=== PATIENT | male | born 1970 | race Caucasian/White ===

== ENCOUNTER 2018-03-18 14:16 | Inpatient (IN) | payer MEDICARE, OTHER ==
[2018-03-18] MEDS ORDERED: ATORVASTATIN 80 MG TAB PO STA (14:25)
[2018-03-18] MEDS ORDERED: CLOPIDOGREL 75 MG TAB PO STA ×3 (14:25→14:34)
[2018-03-18] MEDS ORDERED: HEPARIN SODIUM,PORCINE 5,000 UNIT/ML 1 ML VIAL IV STA (14:31)
[2018-03-18] MEDS ORDERED: SODIUM CHLORIDE 0.9% 500 ML IV ONE (14:32)
[2018-03-18] MEDS ORDERED: ONDANSETRON 4 MG/2 ML VIAL IVP STA (14:34)
[2018-03-18] MEDS: SODIUM CHLORIDE 0.9% 1,000 ML IV SCH ×2 (14:34→16:26)
[2018-03-18] MEDS ORDERED: NITROGLYCERIN SL TABS 0.4 MG TAB SUBLINGUAL PRN ×2 (14:34→15:54)
--- NOTE | 2018-03-18 14:34 | ED ---
Chest Pain HPI - General Chief Complaint: Chest Pain Stated Complaint: chest pain Time Seen by Provider: 03/18/18 14:18 Source: patient Mode of arrival: EMS Limitations: no limitations - History of Present Illness Initial Comments: 47 years old male had a chest pain off and on for us couple days he said he had a history of mild heart attack in the past. He denies any stent placement. He does have a history of hypertension today chest pain started towards ago pain that he got to nitro and aspirin by the embolus staff on arrival to the ER his chest pain is 2/10. And he is not short winded now but he was short of breath earlier and he said it does hurt to take a deep breath he denies any fever or chills - Related Data Home Medications Medication Instructions Recorded Confirmed Naproxen Sodium [Aleve] 220 mg PO BID 03/18/18 03/18/18 Allergies Allergy/AdvReac Type Severity Reaction Status Date / Time No Known Allergies Allergy Verified 03/18/18 14:38 Review of Systems ROS Statement: Those systems with pertinent positive or pertinent negative responses have been documented in the HPI. ROS Other: All systems not noted in ROS Statement are negative. EKG Findings - EKG Comments: EKG Findings:: EKG is a normal sinus ventricular rate 71 SC interval is 142 QRS duration is 96 QT/QTc is 410/445 review of this EKG reveals slight A STEMI into 3 and aVF and reciprocal changes and now we've and V2 V3, likely Dr. Monsivais happened to be in the hospital he came down to see the patient as well as EKG Past Medical History Past Medical History: GERD/Reflux, Hyperlipidemia, Hypertension, Myocardial Infarction ([place]) History of Any Multi-Drug Resistant Organisms: None Reported Past Surgical History: Back Surgery, Orthopedic Surgery Past Anesthesia/Blood Transfusion Reactions: No Reported Reaction Past Psychological History: No Psychological Hx Reported Smoking Status: Current every day smoker Past Alcohol Use History: None Reported Past Drug Use History: None Reported General Exam - General Exam Comments Initial Comments: General: The patient is awake and alert, in no distress, and does not appear acutely ill. Very anxious Skin: Skin is warm and dry and no rashes or lesions are noted. Eye: Pupils are equal, round and reactive to light, extra-ocular movements are intact; there is normal conjunctiva bilaterally. Ears, nose, mouth and throat: There are moist mucous membranes and no oral lesions. Neck: The neck is supple, there is no tenderness or JVD. Cardiovascular: There is a regular rate and rhythm. No murmur, rub or gallop is appreciated. Respiratory: To auscultation bilateral, no wheezing no rhonchi no distress respiratory randall noticed Gastrointestinal: Soft, non-distended, non-tender abdomen without masses or organomegaly noted. There is no rebound or guarding present. Bowel sounds are unremarkable. Back: There is no tenderness to palpation in the midline. There is no obvious deformity. Musculoskeletal: Normal ROM, no tenderness, There is no pedal edema. There is no calf tenderness or swelling. No cords were appreciated. Neurological: CN II-XII intact, Cranial nerves III through XII are intact. There are no obvious motor or sensory deficits. Coordination appears grossly intact. Speech is normal. Psychiatric: Cooperative, appropriate mood & affect, normal judgment. Limitations: no limitations Course Vital Signs 03/18/18 03/18/18 03/18/18 14:17 14:30 14:35 Temperature 97.7 F Pulse Rate 57 L 59 L 38 L Respiratory 16 16 18 Rate Blood Pressure 124/69 125/78 89/50 O2 Sat by Pulse 97 98 98 Oximetry 03/18/18 03/18/18 03/18/18 14:38 14:40 14:45 Temperature Pulse Rate 40 L 42 L 68 Respiratory 18 20 20 Rate Blood Pressure 101/49 86/52 85/50 O2 Sat by Pulse 98 98 97 Oximetry 03/18/18 14:50 Temperature Pulse Rate 72 Respiratory 20 Rate Blood Pressure 96/59 O2 Sat by Pulse 98 Oximetry Since this is a STEMI related ICU admission Dr. Monsivais stated for STEMI related admissions they do not required ICU consult Critical Care Time Total Critical Care Time: 35 Critical Care Time: She was seen within seconds after his arrival to the ER EKG confirms STEMI to 3 aVF and had a respiratory changes in the other leads then patient dropped her blood pressure blood pressure went down to 89 and he developed bradycardia in my presence sign noticed her heart rate was 39 I he was quite symptomatic he was quite diaphoretic he wasn't feeling well at that point nor appendectomy infusion was started to keep the heart rate around 60 and blood pressure around 95 200 systolic. Patient had aspirin Plavix heparin bolus and we also gave him mouth are normal saline 500 bolus and the he responded to nor appendectomy and fluids since heart rate went above 60 and his blood pressure was over 100 systolic I discussed that again with the Dr. Monsivais is agreeable with that and patient is heading to the Medical Coding Auditor now and hemodynamically stable him a he be admitted to Dr. Burrell service Dr. Monsivais the boilers inspector Disposition Clinical Impression: STEMI (ST elevation myocardial infarction), Bradycardia, Hypertension Disposition: ADMITTED IP TO THIS HOSP Condition: Good Referrals: None,Stated [Primary Care Provider] - 1-2 days
[2018-03-18 14:38] LABS: Basophils % (A) 0 %; Eosinophils # (A) 0.1 k/uL (0-0.7); Eosinophils % (A) 1 %; HCT 46.8 % (39.0-53.0); HGB 16.1 gm/dL (13.0-17.5); Lymphocytes # (A) 1.3 k/uL (1.0-4.8); Lymphocytes % (A) 10 %; MCH 31.9 pg (25.0-35.0); MCHC 34.3 g/dL (31.0-37.0); MCV 92.8 fL (80.0-100.0); Mean Platelet Volume 7.3; Monocytes # (A) 0.6 k/uL (0-1.0); Monocytes % (A) 4 %; Neutrophils # (A) 10.4 k/uL (1.3-7.7); Neutrophils % (A) 83 %; Platelet Count 298 k/uL (150-450); RBC 5.05 m/uL (4.30-5.90); RDW 13.6 % (11.5-15.5); WBC 12.6 k/uL (3.8-10.6)
--- NOTE | 2018-03-18 14:39 | XR ---
EXAMINATION TYPE: XR chest 1V portable DATE OF EXAM: 03/18/2018 COMPARISON: NONE HISTORY: Cardiac arrest TECHNIQUE: Single frontal view of the chest is obtained. FINDINGS: There is no focal air space opacity, pleural effusion, or pneumothorax seen. The cardiac silhouette size is within normal limits. The osseous structures are remarkable for postop change in the right shoulder, there are overlying cardiac leads. IMPRESSION: No acute process.
[2018-03-18 14:42] LABS: ALT 15 U/L (21-72); AST 39 U/L (17-59); Albumin 4.5 g/dL (3.5-5.0); Alkaline Phosphatase 90 U/L (38-126); Anion Gap 12 mmol/L; Blood Urea Nitrogen 22 mg/dL (9-20); Calcium 9.5 mg/dL (8.4-10.2); Carbon Dioxide 21 mmol/L (22-30); Chloride 108 mmol/L (98-107); Glucose 116 mg/dL (74-99); Sodium 141 mmol/L (137-145); Total Protein 7.4 g/dL (6.3-8.2)
[2018-03-18 14:43] LABS: Prothrombin Time 10.2 sec (9.0-12.0)
[2018-03-18] MEDS ORDERED: ATROPINE SULFATE 0.1 MG/ML 10ML SYRINGE IV STA (14:43)
[2018-03-18 14:55] LABS: D-Dimer 0.56 mg/L FEU (<0.60); Partial Thromboplastin Time 22.1 sec (22.0-30.0)
[2018-03-18] MEDS ORDERED: IPRATROPIUM-ALBUTEROL 3 ML NEB INHALATION PRN (14:59)
[2018-03-18] MEDS ORDERED: NALOXONE 0.4 MG/ML 1 ML VIAL IV PRN (14:59)
[2018-03-18] MEDS ORDERED: ACETAMINOPHEN TAB 325 MG TAB PO PRN (14:59)
[2018-03-18] MEDS ORDERED: MORPHINE SULFATE 2 MG/ML SYRINGE IV PRN (14:59)
[2018-03-18] MEDS ORDERED: NOREPINEPHRINE 4 MG in DEXTROSE 5% IN WATER 250 ML IV SCH ×2 (15:00)
[2018-03-18 15:06] LABS: Creatine Kinase MB 1.3 ng/mL (0.0-2.4); Troponin I 0.013 ng/mL (0.000-0.034)
[2018-03-18] MEDS ORDERED: MIDAZOLAM 2 MG/2 ML VIAL IVP ONE (15:15)
[2018-03-18] MEDS ORDERED: LIDOCAINE 2% INJ 20 MG/ML SQ ONE (15:17)
[2018-03-18] MEDS: VERAPAMIL SYRINGE (5 MG/10 ML) INTRAARTER ONE ×2 (15:17→15:49)
[2018-03-18] MEDS ORDERED: BIVALIRUDIN BOLUS 250 MG/50 ML IV ONE (15:22)
[2018-03-18] MEDS ORDERED: BIVALIRUDIN 250 MG in SODIUM CHLORIDE 0.9% 50 ML IV ONE (15:22)
[2018-03-18] MEDS ORDERED: fentaNYL (PF) 50 MCG/ML 2 ML AMP IVP ONE (15:28)
[2018-03-18] MEDS ORDERED: SODIUM CHLORIDE 0.9% 1,000 ML IV ONE (15:30)
[2018-03-18] MEDS ORDERED: NITROGLYCERIN 1000MCG/10ML SYRINGE INTRACORON ONE (15:31)
[2018-03-18] MEDS ORDERED: IOPAMIDOL-370 125ML BTL INJ ONE (15:45)
[2018-03-18] MEDS ORDERED: IOPAMIDOL-370 50ML BTL INJ ONE (15:46)
[2018-03-18] MEDS ORDERED: ZOLPIDEM 5 MG TAB PO PRN (15:54)
[2018-03-18] MEDS ORDERED: ATROPINE SULFATE 0.1 MG/ML 10ML SYRINGE IV PRN (15:54)
[2018-03-18] MEDS ORDERED: RX INFO: IV CONTRAST WAS GIVEN 1 EACH MISC MISCELLANE PRN (15:54)
[2018-03-18] MEDS ORDERED: MAG HYDROX/AL HYDROX/SIMETH 30 ML CUP PO PRN (15:54)
[2018-03-18] MEDS ORDERED: SODIUM CHLORIDE 0.9% 1,000 ML IV SCH (16:00)
--- NOTE | 2018-03-18 16:16 | P.CRDCN ---
History of Present Illness Consult date: 03/18/18 Chief complaint: Chest discomfort History of present illness: This is a pleasant 47-year-old gentleman with a past medical history significant for hypertension, dyslipidemia, and significant history of smoking, presented to the emergency room complaining of chest discomfort. He was in his usual state of health until about 4 days ago when he started experiencing intermittent episodes of chest discomfort as a squeezing sensation in the chest. The discomfort was intermittent. Today it got worse and he decided to come to the emergency room. The EKG showed sinus rhythm with mild ST segment elevation inferiorly and reciprocal changes in the anteroseptal leads. Because of that an emergent heart catheterization was recommended. The patient underwent an emergent heart catheterization and was found to have critical disease involving the mid RCA and severe disease involving the distal RCA. He underwent successful stenting of the mid RCA and distal RCA with a good angiographic results and without any complication from a right radial approach. The left coronary system has mild disease only. By the end of the procedure, the patient was pain-free. He tolerated the procedure very well. Past Medical History Past Medical History: GERD/Reflux, Hyperlipidemia, Hypertension, Myocardial Infarction ([place]) History of Any Multi-Drug Resistant Organisms: None Reported Past Surgical History: Back Surgery, Orthopedic Surgery Past Anesthesia/Blood Transfusion Reactions: No Reported Reaction Past Psychological History: No Psychological Hx Reported Smoking Status: Current every day smoker Past Alcohol Use History: None Reported Past Drug Use History: None Reported Medications and Allergies Home Medications Medication Instructions Recorded Confirmed Type Naproxen Sodium [Aleve] 220 mg PO BID 03/18/18 03/18/18 History Allergies Allergy/AdvReac Type Severity Reaction Status Date / Time No Known Allergies Allergy Verified 03/18/18 14:38 Physical Exam Vitals: Vital Signs Temp Pulse Resp BP Pulse Ox 03/18/18 15:00 97.3 F L 60 20 107/58 99 03/18/18 14:50 72 20 96/59 98 03/18/18 14:45 68 20 85/50 97 03/18/18 14:40 42 L 20 86/52 98 03/18/18 14:38 40 L 18 101/49 98 03/18/18 14:35 38 L 18 89/50 98 03/18/18 14:30 59 L 16 125/78 98 03/18/18 14:17 97.7 F 57 L 16 124/69 97 Intake and Output 07/04/18 07/04/18 07/04/18 06:59 14:59 22:59 Intake Total 272 Balance 272 Intake: IV 272 Other: Weight 94.347 kg - Constitutional General appearance: no acute distress - Respiratory Respiratory: bilateral: CTA - Cardiovascular Rhythm: regular Heart sounds: normal: S1, S2 Results 03/18/18 14:24 03/18/18 14:24 Cardiac Enzymes 03/18/18 03/18/18 Range/Units 14:24 14:24 AST 39 (17-59) U/L CK-MB (CK-2) 1.3 (0.0-2.4) ng/mL Troponin I 0.013 (0.000-0.034) ng/mL Coagulation 03/18/18 Range/Units 14:24 PT 10.2 (9.0-12.0) sec APTT 22.1 (22.0-30.0) sec CBC 03/18/18 Range/Units 14:24 WBC 12.6 H (3.8-10.6) k/uL RBC 5.05 (4.30-5.90) m/uL Hgb 16.1 (13.0-17.5) gm/dL Hct 46.8 (39.0-53.0) % Plt Count 298 (150-450) k/uL Comprehensive Metabolic Panel 03/18/18 Range/Units 14:24 Sodium 141 (137-145) mmol/L Potassium 5.0 (3.5-5.1) mmol/L Chloride 108 H (98-107) mmol/L Carbon Dioxide 21 L (22-30) mmol/L BUN 22 H (9-20) mg/dL Creatinine 0.94 (0.66-1.25) mg/dL Glucose 116 H (74-99) mg/dL Calcium 9.5 (8.4-10.2) mg/dL AST 39 (17-59) U/L ALT 15 L (21-72) U/L Alkaline Phosphatase 90 (38-126) U/L Total Protein 7.4 (6.3-8.2) g/dL Albumin 4.5 (3.5-5.0) g/dL Current Medications Generic Name Dose Route Start Last Admin Trade Name Freq PRN Reason Stop Dose Admin Acetaminophen 650 mg 03/18/18 14:59 Tylenol Tab PO Q4HR PRN Fever and/or Mild Pain Al Hydroxide/Mg Hydroxide 30 ml 03/18/18 15:54 Maalox PO Q4HR PRN Heartburn Albuterol/Ipratropium 3 ml 03/18/18 14:59 Duoneb 0.5 Mg-3 Mg/3 Ml Soln INHALATION RT-Q4H PRN Shortness Of Breath Or Wheezing Aspirin 325 mg 03/19/18 09:00 Aspirin PO DAILY [facility] Atorvastatin Calcium 80 mg 03/18/18 21:00 Lipitor PO HS [facility] Atropine Sulfate 0.5 mg 03/18/18 15:54 Atropine IV ONCE PRN Symptomatic Bradycardia Clopidogrel Bisulfate 75 mg 03/19/18 15:55 Plavix PO DAILY [facility] Sodium Chloride 1,000 mls @ 100 mls/hr 03/18/18 14:45 03/18/18 14:34 Saline 0.9% IV 100 mls/hr .Q10H [facility] Administration Norepinephrine Bitartrate 4 mg 254 mls @ 0 mls/hr 03/18/18 15:00 / Dextrose/Water IV .Q0M [facility] Protocol Sodium Chloride 1,000 mls @ 100 mls/hr 03/18/18 16:00 Saline 0.9% IV 03/18/18 22:01 .Q10H [facility] Lisinopril 5 mg 03/19/18 09:00 Zestril PO DAILY [facility] Metoprolol Tartrate 25 mg 03/18/18 21:00 Lopressor PO BID [facility] Miscellaneous Information 1 each 03/18/18 15:54 Rx Info: Iv Contrast Was Given MISCELLANE 03/20/18 15:54 DAILY PRN Per Protocol Morphine Sulfate 4 mg 03/18/18 14:59 Morphine Sulfate (Inj) IV Q2HR PRN Pain Scale 8 to 10 Naloxone HCl 0.2 mg 03/18/18 14:59 Narcan IV Q2M PRN Opioid Reversal Nitroglycerin 0.4 mg 03/18/18 14:34 Nitrostat SUBLINGUAL Q5M PRN Chest Pain Nitroglycerin 0.4 mg 03/18/18 15:54 Nitrostat SUBLINGUAL Q5M PRN Chest Pain Zolpidem Tartrate 5 mg 03/18/18 15:54 Ambien PO HS PRN Insomnia Intake and Output 03/18/18 03/18/18 03/18/18 06:59 14:59 22:59 Intake Total 272 Balance 272 Intake: IV 272 Other: Weight 94.347 kg Patient Weight 03/19/18 06:59 Weight 94.347 kg 03/18/18 14:24 03/18/18 14:24 Assessment and Plan Assessment: Assessment #[address] patient myocardial infarction #2 status post PCI of the RCA #3 dyslipidemia #4 significant history of smoking Plan #1 dual antiplatelet therapy #2 aggressive cholesterol control #3 an echocardiogram was Doppler #4 smoking cessation was discussed with him #5 follow-up with the patient. Thank you for allowing us participate in his care and we'll continue following up with the patient
[2018-03-18 16:17] LABS: Glucose,Whole Blood 106 mg/dL (75-99)
--- NOTE | 2018-03-18 20:07 | CC ---
CARDIAC CATHETERIZATION REPORT DATE OF SERVICE: 03/18/2018 PERFORMING PHYSICIAN: Bertrand Monsivais MD, jig fitter. PROCEDURES PERFORMED: 1. Selective right and left coronary angiogram. 2. Successful stenting of the mid right coronary artery using 4.0 x 28 mm Xience LUCI with good angiographic results. 3. Successful stenting of the distal right coronary artery using 4.0 x 12 mm Xience LUCI with good angiographic results. 4. Left heart catheterization. INDICATION: This is a pleasant 47-year-old gentleman with hypertension and dyslipidemia and significant history of smoking, presented to the emergency room with chest discomfort, determined to be an acute inferior ST-elevation myocardial infarction. The decision was made toward an emergent heart catheterization. APPROACH: Right radial artery approach, right radial artery. COMPLICATION: None. LEVEL OF SEDATION: Moderate with sedation length of 48 minutes. PROCEDURE DESCRIPTION: After obtaining an informed consent, the patient was brought to the cardiac color laboratory technician. The right radial artery was cannulated using micropuncture technique, the micropuncture wire passed easily. Then I placed a 6-Lao sheath in the right common femoral artery. Subsequently I placed a 6-Lao sheath in the right radial artery. Subsequently I gave the patient 2 mg of verapamil IA and. I did selective right and left coronary angiogram using JR4 and JL3.5 catheters. Left heart catheterization was performed using 5-Lao pigtail catheter. I did after that intervene on the RCA. Please see a separate paragraph for that. SELECTIVE CORONARY ANGIOGRAM: 1. The RCA is a large caliber vessel and it is a dominant vessel. The proximal RCA appeared to be angiographically normal. The mid RCA has a critical eccentric lesion, appeared to be in the range of 90%-95%. The RCA distally has another lesion in the range of 70%. Distally after that lesion bifurcates into PDA and PLV branches. Both are angiographically normal. 2. The left main is angiographically normal. It bifurcates into left circumflex and left anterior descending artery. 3. The left circumflex is a moderate caliber vessel. It is a nondominant vessel. The proximal circ is normal and gives rise into an OM branch which seems to be angiographically normal. The mid circ is normal as well and gives rise to a second OM branch which bifurcates into 2 subbranches, appeared to be angiographically normal and the circ continued after that as a medium caliber vessel in the AV groove. 4. The LAD. The LAD is angiographically normal. In the midportion, it gives rise into a large diagonal branch which seems to have mild disease in the proximal portion. Proximally it gives rise into us into first diagonal branch which seems to be angiographically normal. HEMODYNAMICS: The left ventricular end-diastolic pressure was 12 mmHg and no gradient was identified across aortic valve. PERCUTANEOUS INTERVENTION OF THE RIGHT CORONARY ARTERY: Anticoagulation was initiated using Angiomax. Subsequently I did engage the RCA using JR4 guide. A Whisper Wire was used to cross the 2 lesions in the mid and distal RCA. I did after that balloon angioplasty using 3.0 x 12 mm balloon before I deployed in the midportion 4.0 x 28 mm Xience LUCI which was post dilated using 4.0 NC balloon and distally I put 4 0 x 12 mm another Xience LUCI as well. The following angiogram showed good angiographic results and the procedure was completed without any complication. CONCLUSION: 1. Acute inferior ST-elevation myocardial infarction. 2. Critical lesion in critical lesion involving the mid right coronary artery and severe lesion involving distal right coronary artery. 3. Successful stenting of both the mid and distal right coronary artery with good angiographic results and without any complication and using drug-eluting stents. 4. Mild disease involving the left coronary system. POSTPROCEDURE MANAGEMENT: 1. Maximize medical treatment. 2. An echocardiogram with Doppler. 3. Follow up with the patient. COLLEEN / RAMANDEEPN: [id number] /
[2018-03-19] MEDS: METOPROLOL TARTRATE 25 MG TAB PO SCH ×2 (00:27→09:00)
--- NOTE | 2018-03-19 00:46 | P.HPIM ---
History of Present Illness H&P Date: 03/18/18 Chief Complaint: Chest pain Patient is a 47-year-old male with a known history of hypertension, hyperlipidemia not on any medications and currently every day smoker was brought to the hospital due to chest pain. Patient has been having heaviness in the chest for the past 4-5 days associated with shortness of breath tightness and patient has been sleeping a lot. Today patient is jet skiing and suddenly she felt midsternal chest pain radiating to the left arm. Pressure- like squeezing sensation in the chest. Associated with nausea and felt like throwing up. Patient also having dizziness lightheadedness and diaphoretic. Patient says that he turned nixon. Patient was initially brought to the hospital ER. EKG showed ST elevation in the inferior lateral leads. Patient was taken to [facility] emergently and had RCA stent 2 Currently patient is being monitored in the ICU. Denied any complaints of chest pain or shortness of breath. Troponin 0.013 Chest x-ray showed no acute process Review of Systems Constitutional: Patient denies any fever or chills . No generalized weakness or weight loss. Abdomen: Patient denied nausea vomiting and diarrhea and abdominal pain. Cardiovascular: Patient denies any chest pain or short of breath no palpitations. Respiratory: patient denied any cough is from production. No shortness of breath Neurologic: Patient denied any numbness or tingling headache. Musculoskeletal: Patient denies any complaints of joint swelling or deformity. Skin: Negative Psychiatric: Negative Endocrine: No heat or cold intolerance. No recent weight gain. Genitourinary: No dysuria or hematuria. All other 14 point ROS negative except the above Past Medical History Past Medical History: GERD/Reflux, Hyperlipidemia, Hypertension, Myocardial Infarction ([place]) Last Myocardial Infarction Date:: 03/18/2018 History of Any Multi-Drug Resistant Organisms: None Reported Past Surgical History: Back Surgery, Orthopedic Surgery Additional Past Surgical History / Comment(s): neck surgery, fused C2,6 & 7 together. Rt shoulder surgery for shattered rotator cuff. fell 5 days ago on rt shoulder. rt heel/rt ankle surgery Past Anesthesia/Blood Transfusion Reactions: No Reported Reaction Past Psychological History: No Psychological Hx Reported Smoking Status: Current every day smoker Past Alcohol Use History: None Reported Past Drug Use History: None Reported - Past Family History Father Family Medical History: Myocardial Infarction ([place]) Mother Additional Family Medical History / Comment(s): from an aneuyrsm Medications and Allergies Allergies Allergy/AdvReac Type Severity Reaction Status Date / Time No Known Allergies Allergy Verified 03/18/18 14:38 Physical Exam Vitals: Vital Signs Temp Pulse Pulse Resp BP BP Pulse Ox 03/18/18 19:00 50 L 107/68 97 03/18/18 18:30 51 L 109/64 97 03/18/18 18:15 52 L 98/67 97 03/18/18 18:00 49 L 104/65 97 03/18/18 17:45 51 L 88/67 98 03/18/18 17:30 65 122/79 98 03/18/18 17:15 69 108/70 98 03/18/18 17:00 74 113/74 97 03/18/18 16:45 82 123/69 97 03/18/18 16:30 76 118/75 98 03/18/18 16:16 97.7 F 69 118/75 03/18/18 16:15 97.7 F 68 18 118/75 98 03/18/18 15:00 97.3 F L 60 20 107/58 99 03/18/18 14:50 72 20 96/59 98 03/18/18 14:45 68 20 85/50 97 03/18/18 14:40 42 L 20 86/52 98 03/18/18 14:38 40 L 18 101/49 98 03/18/18 14:35 38 L 18 89/50 98 03/18/18 14:30 59 L 16 125/78 98 03/18/18 14:17 97.7 F 57 L 16 124/69 97 Intake and Output 03/18/18 03/18/18 03/18/18 06:59 14:59 22:59 Intake Total 812 Balance 812 Intake: IV 272 Intake, IV Titration 300 Amount Sodium Chloride 0.9% 1, 300 000 ml @ 100 mls/hr IV . Q10H [facility] Rx#:[id number] Oral 240 Other: Weight 94.347 kg 94.347 kg PHYSICAL EXAMINATION: Patient is lying in the bed comfortably, no acute distress, awake alert and oriented.. HEENT: Normocephalic. Neck is supple. Pupils reactive. Nostrils clear. Oral cavity is moist. Ears reveal no drainage. Neck reveals no JVD, carotid bruits, or thyromegaly. CHEST EXAMINATION: Trachea is central. Symmetrical expansion. Lung west clear to auscultation and percussion. CARDIAC: Normal S1, S2 with no gallops. No murmurs ABDOMEN: Soft. Bowel sounds normal. No organomegaly. No abdominal bruits. Extremities: reveal no edema. No clubbing or cyanosis Neurologically awake, alert, oriented x3 with well-coordinated movements. No focal deficits noted Skin: No rash or skin lesions. Psychiatric: Coperative. Nonsuicidal Musculoskeletal: No joint swelling or deformity. Normal range of motion. Results CBC & Chem 7: 03/18/18 14:24 03/18/18 14:24 Labs: Abnormal Lab Results - Last 24 Hours (Table) 03/18/18 03/18/18 03/18/18 Range/Units 14:24 14:24 14:24 WBC 12.6 H (3.8-10.6) k/uL Neutrophils # 10.4 H (1.3-7.7) k/uL Chloride 108 H (98-107) mmol/L Carbon Dioxide 21 L (22-30) mmol/L BUN 22 H (9-20) mg/dL Glucose 116 H (74-99) mg/dL POC Glucose (mg/dL) (75-99) mg/dL ALT 15 L (21-72) U/L Total Creatine Kinase 193 H (55-170) U/L 03/18/18 Range/Units 16:16 WBC (3.8-10.6) k/uL Neutrophils # (1.3-7.7) k/uL Chloride (98-107) mmol/L Carbon Dioxide (22-30) mmol/L BUN (9-20) mg/dL Glucose (74-99) mg/dL POC Glucose (mg/dL) 106 H (75-99) mg/dL ALT (21-72) U/L Total Creatine Kinase (55-170) U/L Thrombosis Risk Factor Assmnt - DVT/VTE Prophylaxis DVT/VTE Prophylaxis: Pharmacologic Prophylaxis ordered - Choose All That Apply Each Factor Represents 1 point: Acute NH, Age 41-60 years Thrombosis Risk Factor Assessment Total Risk Factor Score: 2 Thrombosis Risk Factor Assessment Level: Low Risk Assessment and Plan Assessment: Acute ST elevated inferior wall NH. Status post emergent cardiac catheterization and stent placement to RCA Hypertension. Currently hypotensive Hyperlipidemia Currently everyday smoker 1 pack per day Family history of coronary artery disease in both parents DVT prophylaxis Full code Plan: Patient will be continued on aspirin Plavix. Started on metoprolol and lisinopril as blood pressure tolerated. Continue with telemetry monitoring and follow closely. Smoking cessation has been counseled extensively. Cardiology is on board. 2-D echocardiogram was ordered. Further recommendations based on the clinical course. Time with Patient: Greater than 30
[2018-03-19 04:50] LABS: Basophils % (A) 0 %; Eosinophils # (A) 0.2 k/uL (0-0.7); Eosinophils % (A) 3 %; HCT 42.1 % (39.0-53.0); HGB 13.8 gm/dL (13.0-17.5); Lymphocytes # (A) 2.1 k/uL (1.0-4.8); Lymphocytes % (A) 23 %; MCH 30.7 pg (25.0-35.0); MCHC 32.8 g/dL (31.0-37.0); MCV 93.8 fL (80.0-100.0); Mean Platelet Volume 6.9; Monocytes # (A) 0.6 k/uL (0-1.0); Monocytes % (A) 7 %; Neutrophils # (A) 5.7 k/uL (1.3-7.7); Neutrophils % (A) 64 %; Platelet Count 278 k/uL (150-450); RBC 4.49 m/uL (4.30-5.90); RDW 13.6 % (11.5-15.5); WBC 8.9 k/uL (3.8-10.6)
[2018-03-19 05:01] LABS: Anion Gap 8 mmol/L; Blood Urea Nitrogen 16 mg/dL (9-20); Calcium 8.8 mg/dL (8.4-10.2); Carbon Dioxide 22 mmol/L (22-30); Chloride 110 mmol/L (98-107); Glucose 103 mg/dL (74-99); Potassium 4.2 mmol/L (3.5-5.1); Sodium 140 mmol/L (137-145)
[2018-03-19] MEDS ORDERED: ASPIRIN 325 MG TAB PO SCH (09:00)
[2018-03-19] MEDS ORDERED: SODIUM CHLORIDE 0.9% 1,000 ML IV SCH (09:00)
[2018-03-19] MEDS ORDERED: LISINOPRIL 5 MG TAB PO SCH (09:00)
[2018-03-19] MEDS ORDERED: CLOPIDOGREL 75 MG TAB PO SCH (09:00)
[2018-03-19] MEDS ORDERED: LISINOPRIL 2.5 MG TAB PO SCH (09:30)
[2018-03-19] MEDS: METOPROLOL TARTRATE 12.5 MG TAB PO SCH ×2 (09:32→20:34)
[2018-03-19 10:39] LABS: Hemoglobin A1C 5.6 % (4.0-6.0)
--- NOTE | 2018-03-19 11:11 | XR ---
Right shoulder HISTORY: Trauma and pain 3 views of the right shoulder Postop changes are noted in the right shoulder, screw courses from the level of the distal clavicle t owards the scapula, some questionable lucency present at the level of the insertion. Glenohumeral margot nt is intact. There is arthropathy, hypertrophic change of the acromioclavicular joint. Right lung ap ex as visualized is normal. Right lung apex as visualized is normal. IMPRESSION: Correlate with patient's surgical history, lucency in the superior scapula may be due to bone resorption. Acromioclavicular joint arthropathy. Correlate for impingement.
--- NOTE | 2018-03-19 11:48 | ECHOF ---
Referral Reason:stemi MEASUREMENTS -------- HEIGHT: 188.0 cm WEIGHT: 83.5 kg BP: 103/55 RVIDd: 2.3 cm (< 3.3) IVSd: 1.1 cm (0.6 - 1.1) LVIDd: 5.2 cm (3.9 - 5.3) LVPWd: 1.5 cm (0.6 - 1.1) IVSs: 1.5 cm LVIDs: 4.2 cm LVPWs: 1.6 cm LA Diam: 3.1 cm (2.7 - 3.8) LAESV Index (A-L): 26.39 ml/m Ao Diam: 3.6 cm (2.0 - 3.7) AV Cusp: 2.2 cm (1.5 - 2.6) LA Diam: 3.4 cm (2.7 - 3.8) MV EXCURSION: 21.388 mm (> 18.000) MV EF SLOPE: 113 mm/s (70 - 150) EPSS: 1.3 cm MV E Abhinav: 0.65 m/s MV DecT: 344 ms MV A Abhinav: 0.53 m/s MV E/A Ratio: 1.23 RAP: 5.00 mmHg RVSP: 16.30 mmHg FINDINGS -------- Sinus rhythm. This was a technically good study. The left ventricular size is normal. Left ventricular wall thickness is normal. There is normal g lobal left ventricular contractility. Overall left ventricular systolic function is low-normal with , an EF between 50 - 55 %. Inferior basal Hypokinesis The right ventricle is normal in size. The left atrial size is normal. The right atrial size is normal. The aortic valve is trileaflet, and appears structurally normal. No aortic stenosis or regurgitation. Mild mitral regurgitation is present. Mild tricuspid regurgitation present. There is no evidence of pulmonary hypertension. The right v entricular systolic pressure, as measured by Doppler, is 16.30mmHg. Trace/mild (physiologic) pulmonic regurgitation. The aortic root size is normal. There is no pericardial effusion. CONCLUSIONS -------- 1. The left ventricular size is normal. 2. Left ventricular wall thickness is normal. 3. Overall left ventricular systolic function is low-normal with, an EF between 50 - 55 %. 4. Inferior basal Hypokinesis 5. The right ventricle is normal in size. 6. The left atrial size is normal. 7. The right atrial size is normal. 8. The aortic valve is trileaflet, and appears structurally normal. No aortic stenosis or regurgitati on. 9. Mild mitral regurgitation is present. 10. Mild tricuspid regurgitation present. 11. There is no evidence of pulmonary hypertension. 12. The right ventricular systolic pressure, as measured by Doppler, is 16.30mmHg. 13. Trace/mild (physiologic) pulmonic regurgitation. 14. The aortic root size is normal. 15. There is no pericardial effusion. TIMBER SIZER: Mercedes Rivera RDCS
--- NOTE | 2018-03-19 12:21 | P.PN ---
Subjective Mr. David is seen and examined in ICU. He is status post successful angioplasty of mid and distal RCA yesterday. Repeat EKG this morning reveals sinus mechanism. Heart rates have been running between 49-59, blood pressure 101/70. Nursing staff has held lopresor and lisinopril. He denies symptoms of chest pain , shortness of breath, nausea, vomiting, palpitations, dizziness or diaphoresis. Right wrist site is clean, dry and intact with no evidence of hematoma. He denies symptoms of pain to the right arm or hand. Denies numbness or tingling and is able to move hand, finger and arm without difficulty. Laboratory data reviewed, hemoglobin 13.8, platelets 278, sodium 140, potassium 4.2, creatinine 0.8. Echocardiogram obtained reveals low-normal ejection fraction 50-55%, inferior basal hypokinesia, mild MR and mild TR. Objective - Vital Signs Vital signs: Vital Signs Temp 97.6 F 03/19/18 08:00 Pulse 49 L 03/19/18 11:00 Resp 16 03/19/18 11:00 BP 109/72 03/19/18 11:00 Pulse Ox 98 03/19/18 11:00 Intake & Output 03/18/18 03/19/18 03/19/18 18:59 06:59 18:59 Intake Total 712 1300 600 Output Total 950 350 Balance 712 350 250 Weight 94.347 kg 83.7 kg Intake: IV 272 1200 240 Sodium Chloride 0.9% 1, 1200 240 000 ml @ 100 mls/hr IV . Q10H [facility] Rx#:[id number] Intake, IV Titration 200 100 Amount Sodium Chloride 0.9% 1, 200 100 000 ml @ 100 mls/hr IV . Q10H [facility] Rx#:[id number] Oral 240 360 Output: Urine 950 350 Other: Voiding Method Urinal Urinal # Voids 1 # Bowel Movements 1 - Exam GENERAL: Well-appearing, well-nourished and in no acute distress. NECK: Supple without JVD or thyromegaly. LUNGS: Breath sounds clear to auscultation bilaterally. Respiration equal and unlabored. No wheezes, rales or rhonchi. HEART: Regular rate and rhythm without murmurs, rubs or gallops. S1 and S2 heard. EXTREMITIES: Normal range of motion, no edema. No clubbing or cyanosis. Peripheral pulses intact. Right wrist clean, dry and intact, no hematoma, no ecchymosis noted. - Labs CBC & Chem 7: 03/19/18 04:29 03/19/18 04:29 Labs: Abnormal Lab Results - Last 24 Hours (Table) 03/18/18 03/18/18 03/18/18 Range/Units 14:24 14:24 14:24 WBC 12.6 H (3.8-10.6) k/uL Neutrophils # 10.4 H (1.3-7.7) k/uL Chloride 108 H (98-107) mmol/L Carbon Dioxide 21 L (22-30) mmol/L BUN 22 H (9-20) mg/dL Glucose 116 H (74-99) mg/dL POC Glucose (mg/dL) (75-99) mg/dL ALT 15 L (21-72) U/L Total Creatine Kinase 193 H (55-170) U/L 03/18/18 03/19/18 Range/Units 16:16 04:29 WBC (3.8-10.6) k/uL Neutrophils # (1.3-7.7) k/uL Chloride 110 H (98-107) mmol/L Carbon Dioxide (22-30) mmol/L BUN (9-20) mg/dL Glucose 103 H (74-99) mg/dL POC Glucose (mg/dL) 106 H (75-99) mg/dL ALT (21-72) U/L Total Creatine Kinase (55-170) U/L Assessment and Plan Assessment: ASSESSMENT Acute inferior ST elevated myocardial infarction status post successful angioplasty of the RCA Dyslipidemia Hypertension Chronic tobacco abuse PLAN Decrease lisinopril 2.5 mg daily with parameters to give with systolic blood pressure less than 100. Decrease Lopressor to 12.5 mg twice a day with parameters not to give with heart rate less than 60. Continue dual antiplatelet therapy and statin as was previously ordered. Smoking cessation recommended and importance of medication compliance discussed with patient and spouse. Stable from a cardiac perspective for transfer out of ICU to [facility]. We will continue to follow. Nurse Practitioner note has been reviewed, I agree with a documented findings and plan of care. Patient was seen and examined.
[2018-03-19 14:41] VITALS: BMI 22.4
--- NOTE | 2018-03-19 15:09 | P.PN ---
Subjective Progress Note Date: 03/19/18 Progress note being dictated for Dr. Ascencio Chief Complaint: Chest pain Patient is a 47-year-old male with a known history of hypertension, hyperlipidemia not on any medications and currently every day smoker was brought to the hospital due to chest pain. Patient has been having heaviness in the chest for the past 4-5 days associated with shortness of breath tightness and patient has been sleeping a lot. Today patient is jet skiing and suddenly she felt midsternal chest pain radiating to the left arm. Pressure- like squeezing sensation in the chest. Associated with nausea and felt like throwing up. Patient also having dizziness lightheadedness and diaphoretic. Patient says that he turned nixon. Patient was initially brought to the hospital ER. EKG showed ST elevation in the inferior lateral leads. Patient was taken to [facility] emergently and had RCA stent 2 Currently patient is being monitored in the ICU. Denied any complaints of chest pain or shortness of breath. Troponin 0.013 Chest x-ray showed no acute process Review of Systems Constitutional: Patient denies any fever or chills . No generalized weakness or weight loss. Abdomen: Patient denied nausea vomiting and diarrhea and abdominal pain. Cardiovascular: Patient denies any chest pain or short of breath no palpitations. Respiratory: patient denied any cough is from production. No shortness of breath Neurologic: Patient denied any numbness or tingling headache. Musculoskeletal: Patient denies any complaints of joint swelling or deformity. Skin: Negative Psychiatric: Negative Endocrine: No heat or cold intolerance. No recent weight gain. Genitourinary: No dysuria or hematuria. All other 14 point ROS negative except the above 03/19/2018 telemetry sinus bradycardia to sinus rhythm with heart rates ranging from high 40s to 60s. Borderline hypotension with systolic blood pressure in the low 100s; beta claus and CHRISTIAN inhibitor held. Telemetry sinus rhythm. Echo reporting EF 5055%, inferior basal hypokinesia Denies chest pain, palpitations or shortness of breath. Denies lightheadedness dizziness or focal deficits. Complains of recent fall involving right shoulder with significant right shoulder pain, limited mobility of right arm. Objective - Vital Signs Vital signs: Vital Signs Temp 97.9 F 03/19/18 12:00 Pulse 59 L 03/19/18 12:00 Resp 12 03/19/18 12:00 BP 101/70 03/19/18 12:00 Pulse Ox 98 03/19/18 12:00 Intake & Output 03/18/18 03/19/18 03/19/18 18:59 06:59 18:59 Intake Total 712 1300 620 Output Total 950 350 Balance 712 350 270 Weight 94.347 kg 83.7 kg 83.7 kg Intake: IV 272 1200 260 Sodium Chloride 0.9% 1, 1200 260 000 ml @ 100 mls/hr IV . Q10H [facility] Rx#:[id number] Intake, IV Titration 200 100 Amount Sodium Chloride 0.9% 1, 200 100 000 ml @ 100 mls/hr IV . Q10H [facility] Rx#:[id number] Oral 240 360 Output: Urine 950 350 Other: Voiding Method Urinal Urinal # Voids 1 2 # Bowel Movements 1 - Exam Patient is sitting up in the bed comfortably, no acute distress, awake alert and oriented.. HEENT: Normocephalic. Neck is supple. Pupils reactive. Nostrils clear. Oral cavity is moist. Ears reveal no drainage. Neck reveals no JVD, carotid bruits, or thyromegaly. CHEST EXAMINATION: Trachea is central. Symmetrical expansion. Lung west clear to auscultation and percussion. CARDIAC: Normal S1, S2 with no gallops. No murmurs ABDOMEN: Soft. Bowel sounds normal. No organomegaly. No abdominal bruits. Extremities: reveal no edema. No clubbing or cyanosis. Limited right shoulder movement. Neurologically awake, alert, oriented x3 with well-coordinated movements. No focal deficits noted Skin: No rash or skin lesions. Psychiatric: Coperative. Nonsuicidal - Labs CBC & Chem 7: 03/19/18 04:29 03/19/18 04:29 Labs: Abnormal Lab Results - Last 24 Hours (Table) 03/18/18 03/18/18 03/19/18 Range/Units 14:24 16:16 04:29 Chloride 110 H (98-107) mmol/L Glucose 103 H (74-99) mg/dL POC Glucose (mg/dL) 106 H (75-99) mg/dL Total Creatine Kinase 193 H (55-170) U/L Assessment and Plan Assessment: Acute ST elevated inferior wall CO. Status post emergent cardiac catheterization and stent placement to RCA Hypertension. Currently hypotensive Hyperlipidemia Currently everyday smoker 1 pack per day Family history of coronary artery disease in both parents Right shoulder pain, recent fall Plan: Continue on current medication regime ,monitoring and symptomatic treatment. Right shoulder x-ray with orthopedic consult ordered. Patient will be continued on aspirin Plavix, decreased doses of metoprolol and lisinopril. Continue with telemetry monitoring and follow closely. Smoking cessation readdressed with both patient and significant other. Cleared by cardiology for transfer, transfer to telemetry. The impression and plan of care has been dictated as directed. : I performed a history and examination of this patient, discussed the same with the dictator. I agree with the dictator's note ,documented as a scribe. Any additional findings or plans will be noted.
--- NOTE | 2018-03-19 18:31 | P.CNOR ---
History of Present Illness - HPI Consult date: 03/19/18 Consult reason: joint pain (Right shoulder) History of present illness: This is a 47-year-old male admitted to [facility] with SD. He had stents placed the heart catheterization. He reportedly had a fall prior to his admission, injuring his right shoulder. We are consulted for orthopedic evaluation of his right shoulder pain. He does have history of surgery to the right shoulder as a teenager for an AC separation. Past Medical History Past Medical History: GERD/Reflux, Hyperlipidemia, Hypertension, Myocardial Infarction (SD) Last Myocardial Infarction Date:: 03/18/2018 History of Any Multi-Drug Resistant Organisms: None Reported Past Surgical History: Back Surgery, Orthopedic Surgery Additional Past Surgical History / Comment(s): neck surgery, fused C2,6 & 7 together. Rt shoulder surgery for shattered rotator cuff. fell 5 days ago on rt shoulder. rt heel/rt ankle surgery Past Anesthesia/Blood Transfusion Reactions: No Reported Reaction Past Psychological History: No Psychological Hx Reported Smoking Status: Current every day smoker Past Alcohol Use History: None Reported Past Drug Use History: None Reported - Past Family History Father Family Medical History: Myocardial Infarction (SD) Mother Additional Family Medical History / Comment(s): from an aneuyrsm Medications and Allergies Allergies Allergy/AdvReac Type Severity Reaction Status Date / Time No Known Allergies Allergy Verified 03/18/18 14:38 Physical Examination This is a pleasant 47-year-old male in no acute distress. He is alert and oriented 3. Exam of the head neck reveal no obvious deformity. He has fairly good cervical spine motion without difficulty or pain. There is no pain on palpation about cervical spine or paraspinal musculature. Exam the upper extremities reveals a scar about the right shoulder. He has full passive range of motion of the shoulder with pain. He can only get about 90 of forward flexion and abduction actively secondary to pain. There is slight crepitus noted with motion of the shoulder. There is weakness with rotator cuff testing. There is no AC joint tenderness. He has full elbow, wrist and finger motion without difficulty or pain. Neurovascular status to the upper extremities intact. Results X-rays reveal no acute fracture. There is screw in place from the clavicle to the coracoid most likely from acromioclavicular fixation. - Labs Labs: Abnormal Lab Results - Last 24 Hours (Table) 03/19/18 Range/Units 04:29 Chloride 110 H (98-107) mmol/L Glucose 103 H (74-99) mg/dL H & H 03/18/18 03/19/18 Range/Units 14:24 04:29 Hgb 16.1 13.8 (13.0-17.5) gm/dL Hct 46.8 42.1 (39.0-53.0) % Coagulation 03/18/18 Range/Units 14:24 INR 1.0 (<1.2) Result Diagrams: 03/19/18 04:29 03/19/18 04:29 Assessment and Plan (1) Right shoulder pain Current Visit: Yes Status: Acute Code(s): M25.511 - PAIN IN RIGHT SHOULDER SNOMED Code(s): 37997493 (2) STEMI (ST elevation myocardial infarction) Current Visit: Yes Status: Acute Code(s): I21.3 - ST ELEVATION (STEMI) MYOCARDIAL INFARCTION OF RUST SITE SNOMED Code(s): 830368355 Plan: The clinical and x-ray findings are discussed with the patient. He may possibly have a rotator cuff injury. I have offered him a sling for comfort which she declines at this time. I have ordered physical therapy to evaluate and treat. I have advised the patient that we will hold off on cortisone injections at this time secondary to his recent surgery. He is follow-up in our office after discharge from the hospital.
[2018-03-19] MEDS ORDERED: ATORVASTATIN 80 MG TAB PO SCH (21:00)
[2018-03-20 00:13] VITALS: TEMP 98
[2018-03-20 03:17] VITALS: BP 106/65; PULSE 58; RESP 18
[2018-03-20] MEDS: METOPROLOL TARTRATE 12.5 MG TAB PO SCH (09:09)
--- NOTE | 2018-03-20 10:17 | P.PN ---
Subjective Progress Note Date: 03/20/18 Principal diagnosis: Acute inferior STEMI Mr. David is seen and examined in ICU. He is status post successful angioplasty of mid and distal RCA yesterday. Repeat EKG this morning reveals sinus mechanism. Heart rates have been running between 49-59, blood pressure 106/65. Nursing staff has held lopresor and lisinopril. He denies symptoms of chest pain , shortness of breath, nausea, vomiting, palpitations, dizziness or diaphoresis. Right wrist site is clean, dry and intact with no evidence of hematoma. He denies symptoms of pain to the right arm or hand. Denies numbness or tingling and is able to move hand, finger and arm without difficulty. No lab data today. He's been up ambulating in the hallway most of the morning. Objective - Vital Signs Vital signs: Vital Signs Temp 98.0 F 03/20/18 03:16 Pulse 58 L 03/20/18 03:16 Resp 18 03/20/18 08:00 BP 106/65 03/20/18 03:16 Pulse Ox 96 03/20/18 03:16 Intake & Output 03/19/18 03/20/18 03/20/18 18:59 06:59 18:59 Intake Total 620 Output Total 350 Balance 270 Weight 83.7 kg 83.1 kg Intake: IV 260 Sodium Chloride 0.9% 1, 260 000 ml @ 100 mls/hr IV . Q10H [facility] Rx#:[id number] Oral 360 Output: Urine 350 Other: Voiding Method Urinal Toilet Toilet Urinal Urinal # Voids 2 3 # Bowel Movements 1 - Exam GENERAL: Well-appearing, well-nourished and in no acute distress. NECK: Supple without JVD or thyromegaly. LUNGS: Breath sounds clear to auscultation bilaterally. Respiration equal and unlabored. No wheezes, rales or rhonchi. HEART: Regular rate and rhythm without murmurs, rubs or gallops. S1 and S2 heard. EXTREMITIES: Normal range of motion, no edema. No clubbing or cyanosis. Peripheral pulses intact. Right wrist clean, dry and intact, no hematoma, no ecchymosis noted. - Labs CBC & Chem 7: 03/19/18 04:29 03/19/18 04:29 Assessment and Plan Plan: ASSESSMENT Acute inferior ST elevated myocardial infarction status post successful angioplasty of the RCA Dyslipidemia Hypertension Chronic tobacco abuse Plan From cardiology's perspective, patient may be discharged home today, we'll make him a follow-up appointment to see Dr. Mckee in the office post discharge. Discharge medications include aspirin 325 mg daily, Lipitor 80 mg daily, Plavix 75 mg daily, lisinopril to half milligrams daily, metoprolol 12-1/2 mg one tablet by mouth twice a day, and sublingual nitroglycerin as needed for chest. Patient has been educated regarding the importance of smoking cessation. DNP note has been reviewed, I agree with a documented findings and plan of care. Patient was seen and examined.
--- NOTE | 2018-03-20 15:06 | P.DS ---
Providers Date of admission: 03/18/18 15:02 Expected date of discharge: 03/20/18 Attending physician: Amos Ascencio Consults: 03/18/18 14:34 Consult Physician Stat Consulting Provider: Ethan Chaves Consult Reason/Comments: STEMI ACTIVATION COMPLETE Do you want consulting provider notified?: Yes 03/18/18 14:59 Consult Physician Stat Consulting Provider: Bertrand Monsivais Consult Reason/Comments: STEMI, bradycardia hypotension Do you want consulting provider notified?: Yes 03/18/18 15:54 Consult Physician Routine Consulting Provider: Ethan Chaves Consult Reason/Comments: Post Interventional patient Do you want consulting provider notified?: Already Contacted 03/19/18 12:43 Consult Physician Routine Consulting Provider: Hima Munoz Consult Reason/Comments: Right Shoulder injury Do you want consulting provider notified?: Already Contacted Primary care physician: Stated None [facility] Hospital Course: Final Diagnoses: Acute ST elevated inferior wall MN. Status post emergent cardiac catheterization and stent placement to RCA Hypertension. Currently hypotensive Hyperlipidemia Currently everyday smoker 1 pack per day Family history of coronary artery disease in both parents Right shoulder pain, recent fall, suspected rotator cuff injury, follow-up with orthopedics outpatient. Hospital course:Patient is a 47-year-old male with a known history of hypertension, hyperlipidemia not on any medications and currently every day smoker was brought to the hospital due to chest pain. Patient has been having heaviness in the chest for the past 4-5 days associated with shortness of breath tightness and patient has been sleeping a lot. Today patient is jet skiing and suddenly she felt midsternal chest pain radiating to the left arm. Pressure-like squeezing sensation in the chest. Associated with nausea and felt like throwing up. Patient also having dizziness lightheadedness and diaphoretic. Patient says that he turned nixon. Patient was initially brought to the hospital ER. EKG showed ST elevation in the inferior lateral leads. Patient was taken to [facility] emergently and had RCA stent 2 Currently patient is being monitored in the ICU. Denied any complaints of chest pain or shortness of breath. Troponin 0.013 Chest x-ray showed no acute process Echo reporting EF 50-55%, inferior basal hypokinesia. Complains of recent fall involving right shoulder with significant right shoulder pain, limited mobility of right arm. X-ray reported no acute fracture. Evaluated by orthopedics, suspected rotator cuff injury, further follow-up outpatient. Significant clinical improvement ,Cleared by both cardiology, orthopedics for discharge. Patient is being discharged home in a stable condition with guarded prognosis. Exam Patient is alert and oriented 3, no acute distress. CHEST EXAMINATION: Lungs clear to auscultation and percussion. No wheezing, no rhonchi, no crackles. CARDIAC: Normal S1, S2 with no gallops. No murmurs ABDOMEN: Soft. Bowel sounds normal. No organomegaly. No abdominal bruits. Extremities: reveal no edema. No clubbing or cyanosis. Limited right shoulder movement. Neurologically awake, alert, oriented x3 with well-coordinated movements. No focal deficits noted The impression and plan of care has been dictated as directed. : I performed a history and examination of this patient, discussed the same with the dictator. I agree with the dictator's note ,documented as a scribe. Any additional findings or plans will be noted. Patient Condition at Discharge: Stable Plan - Discharge Summary Discharge Rx Participant: Yes New Discharge Prescriptions: New Aspirin 325 mg PO DAILY #30 tab Atorvastatin [Lipitor] 80 mg PO HS #30 tab Clopidogrel [Plavix] 75 mg PO DAILY #30 tab Lisinopril [Zestril] 2.5 mg PO DAILY #30 tab Metoprolol Tartrate [Lopressor] 12.5 mg PO BID #60 tab Nitroglycerin Sl Tabs [Nitrostat] 0.4 mg SUBLINGUAL Q5M PRN #25 tab PRN Reason: Chest Pain Nicotine 21Mg/24Hr Patch [Habitrol] 1 each TRANSDERM DAILY #30 patch Acetaminophen Tab [Tylenol Tab] 650 mg PO Q6H PRN #1 tablet PRN Reason: Pain Discharge Medication List Acetaminophen Tab [Tylenol Tab] 650 mg PO Q6H PRN #1 tablet 03/20/18 [Rx] Aspirin 325 mg PO DAILY #30 tab 03/20/18 [Rx] Atorvastatin [Lipitor] 80 mg PO HS #30 tab 03/20/18 [Rx] Clopidogrel [Plavix] 75 mg PO DAILY #30 tab 03/20/18 [Rx] Lisinopril [Zestril] 2.5 mg PO DAILY #30 tab 03/20/18 [Rx] Metoprolol Tartrate [Lopressor] 12.5 mg PO BID #60 tab 03/20/18 [Rx] Nicotine 21Mg/24Hr Patch [Habitrol] 1 each TRANSDERM DAILY #30 patch 03/20/18 [ Rx] Nitroglycerin Sl Tabs [Nitrostat] 0.4 mg SUBLINGUAL Q5M PRN #25 tab 03/20/18 [Rx ] Follow up Appointment(s)/Referral(s): Sudhakar Crisostomo MD [REFERRING] - 3 Days Bertrand Monsivais MD [STAFF PHYSICIAN] - 1 Week (Saturday, March 31, 2018 at 3:30 pm Appointment with cardiology associates Dr. Monsivais) Hima Munoz MD [Medical Doctor] - 1 Week Ambulatory/Diagnostic Orders: Comprehensive Metabolic Panel [LAB.AMB] Time Frame: 3 Days, Location: None Selected Patient Instructions/Handouts: Myocardial Infarction (DC), How to Stop Smoking (DC), Bradycardia (DC) Activity/Diet/Wound Care/Special Instructions: no smoking Diet: cardiac activity: limited till F/U Discharge Disposition: HOME WITH HOME HEALTH SERVICES
== END 2018-03-20 11:35 | disposition home or self-care (01) | DRG 247 ==
LOC: EC 14:16 → 6ICU 15:02
PROVIDERS: ADMIT Internal Medicine; ATTEND Internal Medicine
PROC: B2111ZZ Fluoroscopy of Multiple Coronary Arteries using Low Osmolar Contrast (ICD-10-PCS; 2018-03-18)
PROC: 027135Z Dilation of Coronary Artery, Two Arteries with Two Drug-eluting Intraluminal Devices, Percutaneous Approach (ICD-10-PCS; principal; 2018-03-18 14:45)
PROC: 4A023N7 Measurement of Cardiac Sampling and Pressure, Left Heart, Percutaneous Approach (ICD-10-PCS; 2018-03-18 14:45)
DX: I21.19 ST elevation (STEMI) myocardial infarction involving other coronary artery of inferior wall (principal); E78.5 Hyperlipidemia, unspecified; F17.210 Nicotine dependence, cigarettes, uncomplicated; I10 Essential (primary) hypertension; I25.2 Old myocardial infarction; K21.9 Gastro-esophageal reflux disease without esophagitis; I95.9 Hypotension, unspecified; R00.1 Bradycardia, unspecified; S46.001A Unspecified injury of muscle(s) and tendon(s) of the rotator cuff of right shoulder, initial encounter; Z79.1 Long term (current) use of non-steroidal anti-inflammatories (NSAID); Z71.6 Tobacco abuse counseling; Z82.49 Family history of ischemic heart disease and other diseases of the circulatory system; W19.XXXA Unspecified fall, initial encounter; Y92.9 Unspecified place or not applicable
CPT/HCPCS: 36415; 71045; 80048; 80053; 82550; 82553; 83036; 84484; 85025; 85379; 85610; 85730; 93005; 93306; 93458; 96374; 96375; 99291

== ENCOUNTER 2018-08-21 09:40 | Emergency (ER) | payer MEDICARE, OTHER ==
[2018-08-21] MEDS ORDERED: SODIUM CHLORIDE 0.9% 1,000 ML IV STA (10:10)
[2018-08-21 10:48] LABS: Basophils # (A) 0.1 k/uL (0-0.2); Basophils % (A) 1 %; Eosinophils # (A) 0.4 k/uL (0-0.7); Eosinophils % (A) 5 %; HCT 45.1 % (39.0-53.0); Lymphocytes # (A) 1.8 k/uL (1.0-4.8); Lymphocytes % (A) 21 %; MCH 30.7 pg (25.0-35.0); MCHC 33.3 g/dL (31.0-37.0); MCV 92.3 fL (80.0-100.0); Monocytes # (A) 0.4 k/uL (0-1.0); Monocytes % (A) 5 %; Neutrophils # (A) 5.4 k/uL (1.3-7.7); Neutrophils % (A) 66 %; Platelet Count 282 k/uL (150-450); RBC 4.89 m/uL (4.30-5.90); RDW 12.8 % (11.5-15.5); WBC 8.2 k/uL (3.8-10.6)
[2018-08-21 10:59] LABS: ALT 31 U/L (21-72); AST 19 U/L (17-59); Albumin 3.8 g/dL (3.5-5.0); Alkaline Phosphatase 83 U/L (38-126); Amylase 56 U/L (30-110); Anion Gap 8 mmol/L; Blood Urea Nitrogen 16 mg/dL (9-20); Calcium 9.4 mg/dL (8.4-10.2); Carbon Dioxide 24 mmol/L (22-30); Chloride 108 mmol/L (98-107); Glucose 98 mg/dL (74-99); Lipase 71 U/L (23-300); Potassium 4.5 mmol/L (3.5-5.1); Sodium 140 mmol/L (137-145); Total Bilirubin 0.4 mg/dL (0.2-1.3); Total Protein 6.6 g/dL (6.3-8.2)
--- NOTE | 2018-08-21 10:59 | XR ---
EXAMINATION TYPE: XR chest 2V DATE OF EXAM: 08/21/2018 COMPARISON: NONE TECHNIQUE: PA and lateral views submitted. HISTORY: Pain FINDINGS: The lungs are clear and there is no pneumothorax, pleural effusion, or focal pneumonia. Postsurgica l change involving the right shoulder. Arthropathy bilateral shoulders. Biapical pleural thickening. No overt failure. IMPRESSION: 1. No acute process.
[2018-08-21 11:01] LABS: D-Dimer 0.3 mg/L FEU (<0.60); INR 0.9 (<1.2); Partial Thromboplastin Time 25.5 sec (22.0-30.0)
[2018-08-21 11:10] LABS: Creatine Kinase 59 U/L (55-170)
--- NOTE | 2018-08-21 11:12 | ED ---
General Adult HPI - General Chief complaint: Abdominal Pain Stated complaint: abd pain, SOB Time Seen by Provider: 08/21/18 10:02 Source: patient, RN notes reviewed Mode of arrival: ambulatory Limitations: no limitations - History of Present Illness Initial comments: Patient 47-year-old male presenting to the emergency room today with a chief complaint of right upper quadrant pain over the last 2 days. Patient does admit that the pain is worse with certain movements. Also admits that his noticed that it's worse when he takes deep breath. Patient does admit that he is feeling somewhat short of breath this morning when he woke up because the pain. He states that if he stays still the pain is better. Denies any injury or trauma. Denies any other complaints or symptoms. States he has noticed blood pressures been running high at home but has been taking his medication. He denies any other complaints. Patient denies any recent fever, chills, chest pain, back pain, nausea or vomiting, numbness or tingling, dysuria or hematuria , constipation or diarrhea, headaches or visual changes, or any other complaints. - Related Data Home Medications Medication Instructions Recorded Confirmed Aspirin 325 mg PO HS 08/21/18 08/21/18 Clopidogrel [Plavix] 75 mg PO HS 08/21/18 08/21/18 Lisinopril [Zestril] 2.5 mg PO HS 08/21/18 08/21/18 Metoprolol Succinate [Toprol XL] 25 mg PO HS 08/21/18 08/21/18 Previous Rx's Medication Instructions Recorded Atorvastatin [Lipitor] 80 mg PO HS #30 tab 03/20/18 Nitroglycerin Sl Tabs [Nitrostat] 0.4 mg SUBLINGUAL Q5M PRN #25 tab 03/20/18 Allergies Allergy/AdvReac Type Severity Reaction Status Date / Time No Known Allergies Allergy Verified 08/21/18 10:02 Review of Systems ROS Statement: Those systems with pertinent positive or pertinent negative responses have been documented in the HPI. ROS Other: All systems not noted in ROS Statement are negative. Past Medical History Past Medical History: GERD/Reflux, Hyperlipidemia, Hypertension, Myocardial Infarction (CT) Last Myocardial Infarction Date:: 03/18/2018 History of Any Multi-Drug Resistant Organisms: None Reported Past Surgical History: Back Surgery, Orthopedic Surgery Additional Past Surgical History / Comment(s): neck surgery, fused C2,6 & 7 together. Rt shoulder surgery for shattered rotator cuff. fell 5 days ago on rt shoulder. rt heel/rt ankle surgery Past Anesthesia/Blood Transfusion Reactions: No Reported Reaction Past Psychological History: No Psychological Hx Reported Smoking Status: Current every day smoker Past Alcohol Use History: None Reported Past Drug Use History: None Reported - Past Family History Father Family Medical History: Myocardial Infarction (CT) Mother Additional Family Medical History / Comment(s): from an aneuyrsm General Exam - General Exam Comments Initial Comments: General: The patient is awake and alert, in no distress, and does not appear acutely ill. Eye: Pupils are equal, round and reactive to light, extra-ocular movements are intact. No nystagmus. There is normal conjunctiva bilaterally. No signs of icterus. Ears, nose, mouth and throat: There are moist mucous membranes and no oral lesions. Neck: The neck is supple, there is no tenderness or JVD. Cardiovascular: There is a regular rate and rhythm. No murmur, rub or gallop is appreciated. Respiratory: Lungs are clear to auscultation, respirations are non-labored, breath sounds are equal. No wheezes, stridor, rales, or rhonchi. Gastrointestinal: Abdomen soft on palpation. Patient does have tenderness right upper quadrant. No rebound, guarding or CVA tenderness. Musculoskeletal: Normal ROM, no tenderness. Strength 5/5. Sensation intact. Pulses equal bilaterally 2+. Neurological: A&O x 3. CN II-XII intact, There are no obvious motor or sensory deficits. Coordination appears grossly intact. Speech is normal. Skin: Skin is warm and dry and no rashes or lesions are noted. Psychiatric: Cooperative, appropriate mood & affect, normal judgment. Limitations: no limitations Course Vital Signs 08/21/18 08/21/18 09:45 10:16 Temperature 97.3 F L Pulse Rate 89 Respiratory 20 Rate Blood Pressure 173/140 122/91 O2 Sat by Pulse 98 Oximetry EKG Findings - EKG Comments: EKG Findings:: EKG performed at 02/23/2016: Shows normal sinus rhythm at 64 bpm. NJ interval 172. QRS 102. QT/QTc 426/439. Compared to previous EKG on 03/18/2018. Medical Decision Making - Medical Decision Making Patient reexamined at this time shows no signs of distress. Does admit that symptoms have improved here in the emergency room. Ultrasound was obtained of the right upper quadrant which showed somewhat limited examination due to bowel gas but shows no evidence of cholelithiasis or cholecystitis. Common bile duct was normal. Patient's chest x-ray is negative for any acute abnormality. Labs reviewed. Negative cardiac enzymes. Negative d-dimer. EKG showing no acute changes. Results were discussed with the patient. Pain is located in the right upper quadrant worse with certain movements and deep inspiration. At this time was discussed with patient about admission for serial cardiac enzymes and cardiac consult as he did have a CT in past. At this time patient states he does not want stay feels comfortable being discharged home feels that it is not his heart. 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 He states he will return if symptoms increase or worsen. - Lab Data Result diagrams: 08/21/18 10:25 08/21/18 10:25 Lab Results 08/21/18 08/21/18 08/21/18 Range/Units 10:25 10:25 10:25 WBC 8.2 (3.8-10.6) k/uL RBC 4.89 (4.30-5.90) m/uL Hgb 15.0 (13.0-17.5) gm/dL Hct 45.1 (39.0-53.0) % MCV 92.3 (80.0-100.0) fL MCH 30.7 (25.0-35.0) pg MCHC 33.3 (31.0-37.0) g/dL RDW 12.8 (11.5-15.5) % Plt Count 282 (150-450) k/uL Neutrophils % 66 % Lymphocytes % 21 % Monocytes % 5 % Eosinophils % 5 % Basophils % 1 % Neutrophils # 5.4 (1.3-7.7) k/uL Lymphocytes # 1.8 (1.0-4.8) k/uL Monocytes # 0.4 (0-1.0) k/uL Eosinophils # 0.4 (0-0.7) k/uL Basophils # 0.1 (0-0.2) k/uL PT (9.0-12.0) sec INR (<1.2) APTT (22.0-30.0) sec D-Dimer (<0.60) mg/L FEU Sodium 140 (137-145) mmol/L Potassium 4.5 (3.5-5.1) mmol/L Chloride 108 H (98-107) mmol/L Carbon Dioxide 24 (22-30) mmol/L Anion Gap 8 mmol/L BUN 16 (9-20) mg/dL Creatinine 0.73 (0.66-1.25) mg/dL Est GFR (CKD-EPI)AfAm >90 (>60 ml/min/1.73 sqM) Est GFR (CKD-EPI)NonAf >90 (>60 ml/min/1.73 sqM) Glucose 98 (74-99) mg/dL Calcium 9.4 (8.4-10.2) mg/dL Total Bilirubin 0.4 (0.2-1.3) mg/dL AST 19 (17-59) U/L ALT 31 (21-72) U/L Alkaline Phosphatase 83 (38-126) U/L Total Creatine Kinase 59 (55-170) U/L CK-MB (CK-2) 0.6 (0.0-2.4) ng/mL CK-MB (CK-2) Rel Index 1.0 Troponin I <0.012 (0.000-0.034) ng/mL Total Protein 6.6 (6.3-8.2) g/dL Albumin 3.8 (3.5-5.0) g/dL Amylase 56 (30-110) U/L Lipase 71 (23-300) U/L Urine Color Urine Appearance (Clear) Urine pH (5.0-8.0) Ur Specific [place] (1.001-1.035) Urine Protein (Negative) Urine Glucose (UA) (Negative) Urine Ketones (Negative) Urine Blood (Negative) Urine Nitrite (Negative) Urine Bilirubin (Negative) Urine Urobilinogen (<2.0) mg/dL Ur Leukocyte Esterase (Negative) 08/21/18 08/21/18 Range/Units 10:25 11:00 WBC (3.8-10.6) k/uL RBC (4.30-5.90) m/uL Hgb (13.0-17.5) gm/dL Hct (39.0-53.0) % MCV (80.0-100.0) fL MCH (25.0-35.0) pg MCHC (31.0-37.0) g/dL RDW (11.5-15.5) % Plt Count (150-450) k/uL Neutrophils % % Lymphocytes % % Monocytes % % Eosinophils % % Basophils % % Neutrophils # (1.3-7.7) k/uL Lymphocytes # (1.0-4.8) k/uL Monocytes # (0-1.0) k/uL Eosinophils # (0-0.7) k/uL Basophils # (0-0.2) k/uL PT 10.0 (9.0-12.0) sec INR 0.9 (<1.2) APTT 25.5 (22.0-30.0) sec D-Dimer 0.30 (<0.60) mg/L FEU Sodium (137-145) mmol/L Potassium (3.5-5.1) mmol/L Chloride (98-107) mmol/L Carbon Dioxide (22-30) mmol/L Anion Gap mmol/L BUN (9-20) mg/dL Creatinine (0.66-1.25) mg/dL Est GFR (CKD-EPI)AfAm (>60 ml/min/1.73 sqM) Est GFR (CKD-EPI)NonAf (>60 ml/min/1.73 sqM) Glucose (74-99) mg/dL Calcium (8.4-10.2) mg/dL Total Bilirubin (0.2-1.3) mg/dL AST (17-59) U/L ALT (21-72) U/L Alkaline Phosphatase (38-126) U/L Total Creatine Kinase (55-170) U/L CK-MB (CK-2) (0.0-2.4) ng/mL CK-MB (CK-2) Rel Index Troponin I (0.000-0.034) ng/mL Total Protein (6.3-8.2) g/dL Albumin (3.5-5.0) g/dL Amylase (30-110) U/L Lipase (23-300) U/L Urine Color Yellow Urine Appearance Clear (Clear) Urine pH 5.0 (5.0-8.0) Ur Specific [place] 1.022 (1.001-1.035) Urine Protein Negative (Negative) Urine Glucose (UA) Negative (Negative) Urine Ketones Negative (Negative) Urine Blood Negative (Negative) Urine Nitrite Negative (Negative) Urine Bilirubin Negative (Negative) Urine Urobilinogen <2.0 (<2.0) mg/dL Ur Leukocyte Esterase Negative (Negative) Disposition Clinical Impression: RUQ pain Disposition: HOME SELF-CARE Condition: Good Instructions: Abdominal Pain (ED) Additional Instructions: Please follow-up with cardiology/family doctor in the next 2 days. Please return to emergency room if the symptoms increase or worsen or for any other concerns. Is patient prescribed a controlled substance at d/c from ED?: No Referrals: None,Stated [Primary Care Provider] - 1-2 days Time of Disposition: 12:29
[2018-08-21 11:23] LABS: Creatine Kinase MB 0.6 ng/mL (0.0-2.4); Troponin I <0.012 ng/mL (0.000-0.034)
[2018-08-21 11:24] LABS: Appearance,Urine Clear (Clear); Bilirubin,Urine Negative (Negative); Blood,Urine Negative (Negative); Color,Urine Yellow; Glucose,Urine (UA) Negative (Negative); Ketones,Urine Negative (Negative); Leukocyte Esterase,Urine Negative (Negative); Nitrite,Urine Negative (Negative); Protein,Urine Negative (Negative); Specific Gravity,Urine 1.022 (1.001-1.035); Urobilinogen,Urine <2.0 mg/dL (<2.0)
--- NOTE | 2018-08-21 11:38 | US ---
EXAMINATION TYPE: US abdomen limited DATE OF EXAM: 08/21/2018 COMPARISON: NONE CLINICAL HISTORY: Abdominal Pain. EXAM MEASUREMENTS: Liver Length: 14.8 cm Gallbladder Wall: 0.3 cm CBD: 02 cm Right Kidney: 11.6 x 4.8 x 5.5 cm Patient unable to hold his breath, technically limited study Pancreas: Obscured by bowel gas Liver: limited views, portions visualized wnl Gallbladder: limited views, portions visualized wnl Evidence for sonographic Lang's sign: no CBD: limited views, portions visualized wnl Right Kidney: Inferior pole obscured by overlying bowel gas IMPRESSION: Limited exam due to technical difficulties as the patient was unable to hold his breath, however there is no gross evidence of cholelithiasis or acute cholecystitis.
[2018-08-21 12:56] VITALS: BP 121/79; PULSE 65; RESP 18; TEMP 98.3
== END 2018-08-21 12:35 | disposition home or self-care (01) ==
LOC: EC 09:40
DX: R10.11 Right upper quadrant pain (principal); R06.02 Shortness of breath; I10 Essential (primary) hypertension; I25.2 Old myocardial infarction; F17.200 Nicotine dependence, unspecified, uncomplicated; Z79.82 Long term (current) use of aspirin; Z79.01 Long term (current) use of anticoagulants; Z79.899 Other long term (current) drug therapy
CPT/HCPCS: 36415; 71046; 76705; 80053; 81003; 82150; 82550; 82553; 83690; 84484; 85025; 85379; 85610; 85730; 93005; 96360; 99284

== ENCOUNTER 2019-10-24 15:39 | Emergency (ER) | payer MEDICARE, OTHER ==
[2019-10-24] MEDS ORDERED: HYDROmorphone 1 MG/ML 1 ML SYRINGE IVP STA (16:15)
[2019-10-24 16:27] LABS: Basophils # (A) 0.1 k/uL (0-0.2); Basophils % (A) 1 %; Eosinophils # (A) 0.3 k/uL (0-0.7); Eosinophils % (A) 3 %; HCT 45.1 % (39.0-53.0); HGB 15.1 gm/dL (13.0-17.5); Lymphocytes # (A) 1.8 k/uL (1.0-4.8); Lymphocytes % (A) 20 %; MCH 30.9 pg (25.0-35.0); MCHC 33.5 g/dL (31.0-37.0); MCV 92.3 fL (80.0-100.0); Mean Platelet Volume 7.8; Monocytes # (A) 0.5 k/uL (0-1.0); Monocytes % (A) 5 %; Neutrophils # (A) 6.2 k/uL (1.3-7.7); Neutrophils % (A) 69 %; Platelet Count 301 k/uL (150-450); RBC 4.89 m/uL (4.30-5.90); RDW 12.8 % (11.5-15.5); WBC 9.1 k/uL (3.8-10.6)
[2019-10-24 16:36] LABS: INR 0.9 (<1.2); Prothrombin Time 9.6 sec (9.0-12.0)
[2019-10-24 16:40] LABS: ALT 25 U/L (4-49); AST 32 U/L (17-59); African American GFR (CKD) >90 (>60 ml/min/1.73 sqM); Albumin 4.4 g/dL (3.5-5.0); Alkaline Phosphatase 97 U/L (38-126); Anion Gap 11 mmol/L; Blood Urea Nitrogen 19 mg/dL (9-20); Calcium 9.6 mg/dL (8.4-10.2); Carbon Dioxide 22 mmol/L (22-30); Chloride 104 mmol/L (98-107); Glucose 105 mg/dL (74-99); Non-African American GFR(CKD) >90 (>60 ml/min/1.73 sqM); Potassium 4.3 mmol/L (3.5-5.1); Sodium 137 mmol/L (137-145); Total Bilirubin 0.4 mg/dL (0.2-1.3); Total Protein 7.2 g/dL (6.3-8.2)
--- NOTE | 2019-10-24 16:46 | XR ---
EXAMINATION TYPE: XR chest 2V DATE OF EXAM: 10/24/2019 COMPARISON: 08/21/2018 HISTORY: Chest pain and history of coronary artery disease TECHNIQUE: Frontal and lateral views of the chest are obtained. FINDINGS: There is no focal air space opacity, pleural effusion, or pneumothorax seen. The cardiac silhouette size is within normal limits. The osseous structures are intact. Postsurgical change of the right distal clavicle again noted. IMPRESSION: No acute cardiopulmonary process.
[2019-10-24 16:47] VITALS: RESP 16
--- NOTE | 2019-10-24 16:47 | XR ---
EXAMINATION TYPE: XR shoulder complete LT DATE OF EXAM: 10/24/2019 CLINICAL HISTORY: Chest pain and left shoulder pain TECHNIQUE: Three views of the left shoulder are obtained. COMPARISON: None. FINDINGS: There is no acute fracture/dislocation evident in the left shoulder. The acromioclavicula r and glenohumeral joint spaces appear aligned. However there is moderate left acromioclavicular arth ropathy with marginal osteophytes and capsular V. The visualized ribs are intact and unremarkable. IMPRESSION: There is no acute fracture or dislocation in the left shoulder. Moderate left acromiocla vicular arthropathy.
--- NOTE | 2019-10-24 16:50 | ED ---
General Adult HPI - General Chief complaint: Chest Pain Stated complaint: chest & arm pain Time Seen by Provider: 10/24/19 16:10 Source: patient, RN notes reviewed, old records reviewed Mode of arrival: wheelchair Limitations: no limitations - History of Present Illness Initial comments: 49-year-old male presents for evaluation of left shoulder pain and chest pain. She has had ongoing symptoms for approximately one week. He had a fall onto the left shoulder one week ago and developed some pain with range of motion in the axilla. This pain does radiate into the chest. He states this is similar pain to previous myocardial infarction 2 years ago. He had stenting at that time was on antiplatelets. He's been off all of his medications for proximally 6 months, no antihypertensive medications, no blood thinners. He is concerned this could be related to his heart. No dyspnea. No abdominal pain. Pain localized to the left shoulder and left anterior chest. No diaphoresis. No vomiting. No fever chills. No cough. - Related Data Home Medications Medication Instructions Recorded Confirmed Aspirin 325 mg PO HS 08/21/18 08/21/18 Clopidogrel [Plavix] 75 mg PO HS 08/21/18 08/21/18 Lisinopril [Zestril] 2.5 mg PO HS 08/21/18 08/21/18 Metoprolol Succinate [Toprol XL] 25 mg PO HS 08/21/18 08/21/18 Previous Rx's Medication Instructions Recorded Atorvastatin [Lipitor] 80 mg PO HS #30 tab 03/20/18 Nitroglycerin Sl Tabs [Nitrostat] 0.4 mg SUBLINGUAL Q5M PRN #25 tab 03/20/18 Ibuprofen [Motrin] 600 mg PO Q8HR PRN #24 tab 10/24/19 Allergies Allergy/AdvReac Type Severity Reaction Status Date / Time No Known Allergies Allergy Verified 10/24/19 15:42 Review of Systems ROS Statement: Those systems with pertinent positive or pertinent negative responses have been documented in the HPI. ROS Other: All systems not noted in ROS Statement are negative. Past Medical History Past Medical History: GERD/Reflux, Hyperlipidemia, Hypertension, Myocardial Infarction ([place]) Last Myocardial Infarction Date:: 03/18/2018 History of Any Multi-Drug Resistant Organisms: None Reported Past Surgical History: Back Surgery, Heart Catheterization With Stent, O rthopedic Surgery Additional Past Surgical History / Comment(s): neck surgery, fused C2,6 & 7 together. Rt shoulder surgery for shattered rotator cuff. fell 5 days ago on rt shoulder. rt heel/rt ankle surgery Past Anesthesia/Blood Transfusion Reactions: No Reported Reaction Past Psychological History: No Psychological Hx Reported Smoking Status: Current every day smoker Past Alcohol Use History: Occasional Past Drug Use History: None Reported - Past Family History Father Family Medical History: Myocardial Infarction ([place]) Mother Additional Family Medical History / Comment(s): from an aneuyrsm General Exam Limitations: no limitations General appearance: alert, in no apparent distress Head exam: Present: atraumatic, normocephalic Eye exam: Present: normal appearance, PERRL ENT exam: Present: normal exam Neck exam: Present: normal inspection. Absent: tenderness, meningismus Respiratory exam: Present: normal lung sounds bilaterally. Absent: respiratory distress, wheezes Cardiovascular Exam: Present: regular rate, normal rhythm GI/Abdominal exam: Present: soft. Absent: distended, tenderness, guarding Extremities exam: Present: normal inspection, tenderness, other (Left radial pulse, 2+). Absent: full ROM (Pain on the left lateral scapula and axilla with abduction of the left shoulder, cardiac rehabilitation program director strength is intact, no sensory deficit, normal pulse exam) Back exam: Present: normal inspection, full ROM. Absent: tenderness Neurological exam: Present: alert, oriented X3, CN II-XII intact. Absent: motor sensory deficit Psychiatric exam: Present: normal affect, normal mood Skin exam: Present: warm, dry, intact. 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 Pain worse with range of motion. Patient was concerned this could be related to his heart as he does have history of CAD. His EKG is sinus rhythm with no ST segment elevation. Chest x-ray negative for focal pneumonia, no pneumothorax, no acute findings. X-ray of the left shoulder does show some osteoarthritis of the acromioclavicular joint, no fracture or dislocation. He has normal CBC, normal CMP, negative troponin. His symptoms are consistent with a musculoskeletal issue rather than acute coronary event. Given the duration of symptoms single troponin is adequate to rule out acute coronary syndrome. History and exam consistent with musculoskeletal left shoulder pain. - Lab Data Result diagrams: 10/24/19 15:48 10/24/19 15:48 Lab Results 10/24/19 10/24/19 10/24/19 Range/Units 15:48 15:48 15:48 WBC 9.1 (3.8-10.6) k/uL RBC 4.89 (4.30-5.90) m/uL Hgb 15.1 (13.0-17.5) gm/dL Hct 45.1 (39.0-53.0) % MCV 92.3 (80.0-100.0) fL MCH 30.9 (25.0-35.0) pg MCHC 33.5 (31.0-37.0) g/dL RDW 12.8 (11.5-15.5) % Plt Count 301 (150-450) k/uL Neutrophils % 69 % Lymphocytes % 20 % Monocytes % 5 % Eosinophils % 3 % Basophils % 1 % Neutrophils # 6.2 (1.3-7.7) k/uL Lymphocytes # 1.8 (1.0-4.8) k/uL Monocytes # 0.5 (0-1.0) k/uL Eosinophils # 0.3 (0-0.7) k/uL Basophils # 0.1 (0-0.2) k/uL PT 9.6 (9.0-12.0) sec INR 0.9 (<1.2) APTT 23.0 (22.0-30.0) sec Sodium 137 (137-145) mmol/L Potassium 4.3 (3.5-5.1) mmol/L Chloride 104 (98-107) mmol/L Carbon Dioxide 22 (22-30) mmol/L Anion Gap 11 mmol/L BUN 19 (9-20) mg/dL Creatinine 0.95 (0.66-1.25) mg/dL Est GFR (CKD-EPI)AfAm >90 (>60 ml/min/1.73 sqM) Est GFR (CKD-EPI)NonAf >90 (>60 ml/min/1.73 sqM) Glucose 105 H (74-99) mg/dL Calcium 9.6 (8.4-10.2) mg/dL Magnesium 2.0 (1.6-2.3) mg/dL Total Bilirubin 0.4 (0.2-1.3) mg/dL AST 32 (17-59) U/L ALT 25 (4-49) U/L Alkaline Phosphatase 97 (38-126) U/L Troponin I (0.000-0.034) ng/mL Total Protein 7.2 (6.3-8.2) g/dL Albumin 4.4 (3.5-5.0) g/dL 10/24/19 Range/Units 15:48 WBC (3.8-10.6) k/uL RBC (4.30-5.90) m/uL Hgb (13.0-17.5) gm/dL Hct (39.0-53.0) % MCV (80.0-100.0) fL MCH (25.0-35.0) pg MCHC (31.0-37.0) g/dL RDW (11.5-15.5) % Plt Count (150-450) k/uL Neutrophils % % Lymphocytes % % Monocytes % % Eosinophils % % Basophils % % Neutrophils # (1.3-7.7) k/uL Lymphocytes # (1.0-4.8) k/uL Monocytes # (0-1.0) k/uL Eosinophils # (0-0.7) k/uL Basophils # (0-0.2) k/uL PT (9.0-12.0) sec INR (<1.2) APTT (22.0-30.0) sec Sodium (137-145) mmol/L Potassium (3.5-5.1) mmol/L Chloride (98-107) mmol/L Carbon Dioxide (22-30) mmol/L Anion Gap mmol/L BUN (9-20) mg/dL Creatinine (0.66-1.25) mg/dL Est GFR (CKD-EPI)AfAm (>60 ml/min/1.73 sqM) Est GFR (CKD-EPI)NonAf (>60 ml/min/1.73 sqM) Glucose (74-99) mg/dL Calcium (8.4-10.2) mg/dL Magnesium (1.6-2.3) mg/dL Total Bilirubin (0.2-1.3) mg/dL AST (17-59) U/L ALT (4-49) U/L Alkaline Phosphatase (38-126) U/L Troponin I <0.012 (0.000-0.034) ng/mL Total Protein (6.3-8.2) g/dL Albumin (3.5-5.0) g/dL Disposition Clinical Impression: Left shoulder pain Disposition: HOME SELF-CARE Condition: Good Instructions (If sedation given, give patient instructions): Osteoarthritis (ED), Shoulder Sprain (ED) Prescriptions: Ibuprofen [Motrin] 600 mg PO Q8HR PRN #24 tab PRN Reason: Pain Is patient prescribed a controlled substance at d/c from ED?: No Referrals: None,Stated [Primary Care Provider] - 1-2 days Sudhakar Crisostomo MD [REFERRING] - 1-2 days Time of Disposition: 17:56
[2019-10-24] MEDS ORDERED: KETOROLAC 30 MG/ML 1 ML VIAL IVP STA (17:04)
[2019-10-24 17:58] VITALS: BP 127/87; PULSE 82; TEMP 97.5
== END 2019-10-24 18:07 | disposition home or self-care (01) ==
LOC: EC 15:39
DX: M25.512 Pain in left shoulder (principal); M19.012 Primary osteoarthritis, left shoulder; M79.622 Pain in left upper arm; R07.89 Other chest pain; I25.10 Atherosclerotic heart disease of native coronary artery without angina pectoris; I10 Essential (primary) hypertension; I25.2 Old myocardial infarction; F17.200 Nicotine dependence, unspecified, uncomplicated; Z79.02 Long term (current) use of antithrombotics/antiplatelets; Z79.82 Long term (current) use of aspirin; Z79.899 Other long term (current) drug therapy; Z95.5 Presence of coronary angioplasty implant and graft; Z98.1 Arthrodesis status; Z82.49 Family history of ischemic heart disease and other diseases of the circulatory system; W19.XXXA Unspecified fall, initial encounter
CPT/HCPCS: 36415; 93005; 80053; 83735; 84484; 85025; 85610; 85730; 73030; 71046; 99284; 96374; 96375; J1885; J1170

== ENCOUNTER 2023-12-29 19:01 | Observation (INO) | payer MEDICARE, OTHER ==
--- NOTE | 2023-12-29 19:19 | ED ---
General Adult HPI - General Stated complaint: Chest pain Time Seen by Provider: 12/29/23 19:01 Source: patient, RN notes reviewed, old records reviewed - History of Present Illness Initial comments: This is a 53-year-old male with a past medical history significant for 2 heart attacks with multiple stents. Patient also has high blood pressure and high cholesterol. Patient states he woke up this morning with chest pain and it is in the center of his chest and he describes it as a heaviness. Patient states he would have come in early but he had no ride in. Patient also states he smokes. Patient denies any radiation of the pain but he states that the pain is associated with significant shortness of breath but patient took 1 nitroglycerin by the ambulance and it did help with his pain considerably but the pain is now back. Patient denies any abdominal pain. Patient has nausea vomiting diarrhea. Patient has a headache patient has numbness weakness. - Related Data Home Medications Medication Instructions Recorded Confirmed No Known Home Medications 12/29/23 12/29/23 Allergies Allergy/AdvReac Type Severity Reaction Status Date / Time No Known Allergies Allergy Verified 12/29/23 20:39 Review of Systems ROS Statement: Those systems with pertinent positive or pertinent negative responses have been documented in the HPI. ROS Other: All systems not noted in ROS Statement are negative. Past Medical History Past Medical History: GERD/Reflux, Hyperlipidemia, Hypertension, Myocardial Infarction ([place]) Last Myocardial Infarction Date:: 03/18/2018 History of Any Multi-Drug Resistant Organisms: None Reported Past Surgical History: Back Surgery, Heart Catheterization With Stent, Orthopedic Surgery Additional Past Surgical History / Comment(s): neck surgery, fused C2,6 & 7 together. Rt shoulder surgery for shattered rotator cuff. fell 5 days ago on rt shoulder. rt heel/rt ankle surgery Past Anesthesia/Blood Transfusion Reactions: No Reported Reaction Past Psychological History: No Psychological Hx Reported Past Alcohol Use History: Occasional Past Drug Use History: None Reported - Past Family History Father Family Medical History: Myocardial Infarction ([place]) Mother Additional Family Medical History / Comment(s): from an aneuyrsm General Exam - General Exam Comments Initial Comments: GENERAL: Patient is well-developed and well-nourished. Patient is nontoxic and well- hydrated and is in mild distress. ENT: Neck is soft and supple. No significant lymphadenopathy is noted. Oropharynx is clear. Moist mucous membranes. Neck has full range of motion without eliciting any pain. EYES: The sclera were anicteric and conjunctiva were pink and moist. Extraocular movements were intact and pupils were equal round and reactive to light. Eyelids were unremarkable. PULMONARY: Unlabored respirations. Good breath sounds bilaterally. No audible rales rhonchi or wheezing was noted. CARDIOVASCULAR: There is a regular rate and rhythm without any murmurs gallops or rubs. ABDOMEN: Soft and nontender with normal bowel sounds. SKIN: Skin is clear with no lesions or rashes and otherwise unremarkable. NEUROLOGIC: Patient is alert and oriented x3. Cranial nerves II through XII are grossly intact. Motor and sensory are also intact. Normal speech, volume and content. Symmetrical smile. MUSCULOSKELETAL: Normal extremities with adequate strength and full range of motion. LYMPHATICS: No significant lymphadenopathy is noted PSYCHIATRIC: Normal psychiatric evaluation. Course Vital Signs 12/29/23 12/29/23 12/29/23 19:15 19:26 19:27 Temperature 98.5 F Pulse Rate 97 85 87 Respiratory 20 16 14 Rate Blood Pressure 110/82 135/74 135/74 O2 Sat by Pulse 94 L 96 96 Oximetry 12/29/23 12/29/23 19:30 20:00 Temperature Pulse Rate 84 86 Respiratory 15 18 Rate Blood Pressure 135/74 130/72 O2 Sat by Pulse 96 96 Oximetry Medical Decision Making - Medical Decision Making EKG is interpreted by myself but EKG shows a sinus rhythm at 97 bpm [place] interval 147 QRS 92 QT interval 359 QTc is 413. Patient EKG shows no ST segment ration or depression. Was pt. sent in by a medical professional or institution (, PA, [employer] [employer], urgent care, hospital, or group home...) When possible be specific @ -No Did you speak to anyone other than the patient for history (EMS, parent, family, police, friend...)? What history was obtained from this source @ -No Did you review nursing and triage notes (agree or disagree)? Why? @ -I reviewed and agree with nursing and triage notes Were old charts reviewed (outside hosp., previous admission, EMS record, old EKG, old radiological studies, urgent care reports/EKG's, group home records)? Report findings @ -No old charts were reviewed Differential Diagnosis (chest pain, altered mental status, abdominal pain women, abdominal pain men, vaginal bleeding, weakness, fever, dyspnea, syncope, headache, dizziness, GI bleed, back pain, seizure, CVA, palpatations, mental health, musculoskeletal)? @ -Differential Chest Pain: Stable Angina, Unstable Angina, STEMI, NSTEMI Aortic Dissection, Pneumothorax, Musculoskeletal, Esophageal Spasm GERD, Cholecystitis, Pancreatitis, Zoster, this is not meant to be an all-inclusive list. EKG interpreted by me (3pts min.). @ -As above X-rays interpreted by me (1pt min.). @ -Chest x-ray shows no acute normality CT interpreted by me (1pt min.). @ -None done U/S interpreted by me (1pt. min.). @ -None done What testing was considered but not performed or refused? (CT, X-rays, U/S, labs)? Why? @ -None What meds were considered but not given or refused? Why? @ -None Did you discuss the management of the patient with other professionals (professionals i.e. , PA, [employer], lab, RT, psych nurse, sr. social media & mobile manager, inspector process, teacher, chief credit officer, case specialist)? Give summary @ -I spoke with Dr. Burns he agreed to admit the patient Was smoking cessation discussed for >3mins.? @ -No Was critical care preformed (if so, how long)? @ -No Were there social determinants of health that impacted care today? How? (Homelessness, low income, unemployed, alcoholism, drug addiction, transportation, low edu. Level, literacy, decrease access to med. care, long term, rehab)? @ -No Was there de-escalation of care discussed even if they declined (Discuss DNR or withdrawal of care, Hospice)? DNR status @ -No What co-morbidities impacted this encounter? (DM, HTN, Smoking, COPD, CAD, Cancer, CVA, ARF, Chemo, Hep., AIDS, mental health diagnosis, sleep apnea, morbid obesity)? @ -None Was patient admitted / discharged? Hospital course, mention meds given and route, prescriptions, significant lab abnormalities, going to OR and other pertinent info. @ -Patient was given nitroglycerin as well as nitroglycerin paste and aspirin. Patient's lab work came back within normal range. Patient chest x-ray shows normal. I spoke with Dr. Burns he agreed admit the patient wrote admitting orders and consult cardiology Undiagnosed new problem with uncertain prognosis? @ -No Drug Therapy requiring intensive monitoring for toxicity (Heparin, Nitro, Insulin, Cardizem)? @ -No Were any procedures done? @ -No Diagnosis/symptom? @ -Chest pain Acute, or Chronic, or Acute on Chronic? @ -Acute Uncomplicated (without systemic symptoms) or Complicated (systemic symptoms)? @ -Complicated Side effects of treatment? @ -No Exacerbation, Progression, or Severe Exacerbation? @ -No Poses a threat to life or bodily function? How? (Chest pain, [place], [place], pneumonia, PE, COPD, DKA, ARF, appy, cholecystitis, CVA, Diverticulitis, Homicidal, Suicidal, threat to staff... and all critical care pts) @ -Yes this could lead to an DE and endorgan dysfunction - Lab Data Result diagrams: 12/29/23 19:15 12/29/23 19:15 Lab Results 12/29/23 12/29/23 12/29/23 Range/Units 19:15 19:15 19:15 WBC 4.1 (3.8-10.6) k/uL RBC 4.83 (4.30-5.90) m/uL Hgb 14.2 (13.0-17.5) gm/dL Hct 42.9 (39.0-53.0) % MCV 88.8 (80.0-100.0) fL MCH 29.4 (25.0-35.0) pg MCHC 33.1 (31.0-37.0) g/dL RDW 13.1 (11.5-15.5) % Plt Count 220 (150-450) k/uL MPV 7.8 Neutrophils % 58 % Lymphocytes % 23 % Monocytes % 13 % Eosinophils % 1 % Basophils % 2 % Neutrophils # 2.4 (1.3-7.7) k/uL Lymphocytes # 0.9 L (1.0-4.8) k/uL Monocytes # 0.6 (0-1.0) k/uL Eosinophils # 0.0 (0-0.7) k/uL Basophils # 0.1 (0-0.2) k/uL PT 10.6 (10.0-12.5) sec INR 1.0 (<1.2) APTT 26.7 (22.0-30.0) sec Sodium 134 L (137-145) mmol/L Potassium 4.2 (3.5-5.1) mmol/L Chloride 103 (98-107) mmol/L Carbon Dioxide 20 L (22-30) mmol/L Anion Gap 11 mmol/L BUN 18 (9-20) mg/dL Creatinine 0.96 (0.66-1.25) mg/dL Est GFR (CKD-EPI)AfAm >90 (>60 ml/min/1.73 sqM) Est GFR (CKD-EPI)NonAf 89 (>60 ml/min/1.73 sqM) Glucose 128 H (74-99) mg/dL Calcium 8.7 (8.4-10.2) mg/dL Magnesium 1.8 (1.6-2.3) mg/dL Total Bilirubin 0.5 (0.2-1.3) mg/dL AST 45 (17-59) U/L ALT 34 (4-49) U/L Alkaline Phosphatase 85 (38-126) U/L Troponin I (0.000-0.034) ng/mL Total Protein 6.6 (6.3-8.2) g/dL Albumin 3.9 (3.5-5.0) g/dL 12/29/23 Range/Units 19:15 WBC (3.8-10.6) k/uL RBC (4.30-5.90) m/uL Hgb (13.0-17.5) gm/dL Hct (39.0-53.0) % MCV (80.0-100.0) fL MCH (25.0-35.0) pg MCHC (31.0-37.0) g/dL RDW (11.5-15.5) % Plt Count (150-450) k/uL MPV Neutrophils % % Lymphocytes % % Monocytes % % Eosinophils % % Basophils % % Neutrophils # (1.3-7.7) k/uL Lymphocytes # (1.0-4.8) k/uL Monocytes # (0-1.0) k/uL Eosinophils # (0-0.7) k/uL Basophils # (0-0.2) k/uL PT (10.0-12.5) sec INR (<1.2) APTT (22.0-30.0) sec Sodium (137-145) mmol/L Potassium (3.5-5.1) mmol/L Chloride (98-107) mmol/L Carbon Dioxide (22-30) mmol/L Anion Gap mmol/L BUN (9-20) mg/dL Creatinine (0.66-1.25) mg/dL Est GFR (CKD-EPI)AfAm (>60 ml/min/1.73 sqM) Est GFR (CKD-EPI)NonAf (>60 ml/min/1.73 sqM) Glucose (74-99) mg/dL Calcium (8.4-10.2) mg/dL Magnesium (1.6-2.3) mg/dL Total Bilirubin (0.2-1.3) mg/dL AST (17-59) U/L ALT (4-49) U/L Alkaline Phosphatase (38-126) U/L Troponin I 0.014 (0.000-0.034) ng/mL Total Protein (6.3-8.2) g/dL Albumin (3.5-5.0) g/dL Disposition Clinical Impression: Chest pain Disposition: ADMITTED IP TO THIS HOSP Referrals: None,Stated [Primary Care Provider] - 1-2 days Time of Disposition: 20:56
[2023-12-29] MEDS: NITROGLYCERIN OINT 1 INCH/GM PACKET TOPICAL STA (19:23)
[2023-12-29] MEDS: SODIUM CHLORIDE 0.9% 500 ML 500 ML IV STA (19:23)
[2023-12-29] MEDS: NITROGLYCERIN SL TABS 0.4 MG TAB SUBLINGUAL STA (19:25)
[2023-12-29 19:36] LABS: Basophils # (A) 0.1 k/uL (0-0.2); Basophils % (A) 2 %; Eosinophils % (A) 1 %; HCT 42.9 % (39.0-53.0); HGB 14.2 gm/dL (13.0-17.5); Lymphocytes # (A) 0.9 k/uL (1.0-4.8); Lymphocytes % (A) 23 %; MCH 29.4 pg (25.0-35.0); MCHC 33.1 g/dL (31.0-37.0); MCV 88.8 fL (80.0-100.0); Mean Platelet Volume 7.8; Monocytes # (A) 0.6 k/uL (0-1.0); Monocytes % (A) 13 %; Neutrophils # (A) 2.4 k/uL (1.3-7.7); Neutrophils % (A) 58 %; Platelet Count 220 k/uL (150-450); RBC 4.83 m/uL (4.30-5.90); RDW 13.1 % (11.5-15.5); WBC 4.1 k/uL (3.8-10.6)
--- NOTE | 2023-12-29 19:45 | XR ---
EXAMINATION TYPE: XR chest 2V DATE OF EXAM: 12/29/2023 7:36 PM CLINICAL INDICATION:Male, 53 years old with history of Chest Pain; COMPARISON: Chest radiographs from 10/24/2019 TECHNIQUE: XR chest 2V Frontal and lateral views of the chest. FINDINGS: Lungs/Pleura: There is no evidence of pleural effusion, focal consolidation, or pneumothorax. Pulmonary vascularity: Unremarkable. Heart/mediastinum: Cardiomediastinal silhouette is unremarkable. Musculoskeletal: No acute osseous pathology. Right shoulder fixation screw present. IMPRESSION: No acute cardiopulmonary disease/process.
[2023-12-29 19:58] LABS: Partial Thromboplastin Time 26.7 sec (22.0-30.0); Prothrombin Time 10.6 sec (10.0-12.5)
[2023-12-29 20:02] LABS: ALT 34 U/L (4-49); AST 45 U/L (17-59); African American GFR (CKD) >90 (>60 ml/min/1.73 sqM); Albumin 3.9 g/dL (3.5-5.0); Alkaline Phosphatase 85 U/L (38-126); Anion Gap 11 mmol/L; Blood Urea Nitrogen 18 mg/dL (9-20); Calcium 8.7 mg/dL (8.4-10.2); Carbon Dioxide 20 mmol/L (22-30); Chloride 103 mmol/L (98-107); Glucose 128 mg/dL (74-99); Magnesium 1.8 mg/dL (1.6-2.3); Non-African American GFR(CKD) 89 (>60 ml/min/1.73 sqM); Potassium 4.2 mmol/L (3.5-5.1); Sodium 134 mmol/L (137-145); Total Bilirubin 0.5 mg/dL (0.2-1.3); Total Protein 6.6 g/dL (6.3-8.2)
[2023-12-29] MEDS ORDERED: NITROGLYCERIN SL TABS 0.4 MG TAB SUBLINGUAL PRN (20:56)
[2023-12-29] MEDS ORDERED: IPRATROPIUM-ALBUTEROL 3 ML NEB INHALATION PRN (22:05)
[2023-12-29] MEDS: FAMOTIDINE 20 MG TAB PO SCH (22:31)
[2023-12-29] MEDS: DOXYCYCLINE 100 MG in SODIUM CHLORIDE 0.9% 100 ML IVPB SCH (22:44)
--- NOTE | 2023-12-29 22:52 | CT ---
EXAM: CT Chest Without Intravenous Contrast CLINICAL HISTORY: ITS.REASON CT Reason: cap/copd TECHNIQUE: Axial computed tomography images of the chest without intravenous contrast. CTDI is 7.8 mGy and DLP is 382.3 mGy-cm. This CT exam was performed using one or more of the following dose reduction techniques: automated exposure control, adjustment of the mA and/or kV according to patient size, and/or use of iterative reconstruction technique. COMPARISON: No relevant prior studies available. FINDINGS: Lungs: Unremarkable. No mass. No consolidation. Pleural space: Unremarkable. No pneumothorax. No significant effusion. Heart: Unremarkable. No cardiomegaly. No significant pericardial effusion. No significant coronary artery calcifications. Bones/joints: Unremarkable. No acute fracture. No dislocation. Soft tissues: Unremarkable. Vasculature: Unremarkable. No thoracic aortic aneurysm. Lymph nodes: Unremarkable. No enlarged lymph nodes. IMPRESSION: Normal chest CT.
[2023-12-30] MEDS: NITROGLYCERIN OINT 1 INCH/GM PACKET TOPICAL SCH (01:02)
[2023-12-30 08:54] LABS: Chol/HDL Ratio 4.34 Ratio; LDL Cholesterol,Calculated 124.1 mg/dL (0.0-131.0); VLDL Calculation 15.22 mg/dL (5.00-40.00)
[2023-12-30] MEDS ORDERED: METOPROLOL TARTRATE 12.5 MG TAB PO SCH ×2 (09:00→21:00)
[2023-12-30] MEDS ORDERED: ASPIRIN 325 MG TAB PO SCH (09:00)
[2023-12-30] MEDS: LOSARTAN 25 MG TAB PO SCH (09:23)
[2023-12-30] MEDS: ASPIRIN 81 MG PO SCH (09:23)
[2023-12-30 09:27] VITALS: RESP 18
--- NOTE | 2023-12-30 10:23 | P.CRDCN ---
History of Present Illness History of present illness: HISTORY OF PRESENT ILLNESS: This is a 53-year-old male with a past medical history significant for coronary artery disease with previous stenting of the RCA, hyperlipidemia, and nicotine dependence. Patient does not follow with a claims adjustor. We have been asked to see the patient in consultation for chest pain. Patient examined at the bedside in the emergency room. Patient presented to the hospital with a chief complaint of chest pain. Patient states he has been having chest pain for the past 2 to 3 days. He states it feels like an aching type sensation in the middle of his ch est. He states the pain is not exertionally related. He denies having any shortness of breath. He continues to have mild discomfort this morning and is rating it at 2/10. The patient states he is a current cigarette smoker and smokes 1 pack of cigarettes every 3 days. The patient states he stopped taking all of his medications over a year ago. He states his symptoms feel similar to when he required stenting in the past. DIAGNOSTICS: - EKG reveals sinus mechanism with nonspecific ST-T wave changes. - Chest xray negative for acute process. - CTA: Negative for pulmonary embolism - Laboratory data: WBC 4.1. Hemoglobin 14.2. Platelet count 220. D-dimer 0.64. Sodium 134. Potassium 4.2. BUN 18. Creatinine 0.96. Troponin negative x 3. - Current home cardiac medications include: None - Most recent echocardiogram obtained in March 2018 reveals ejection fraction 50 to 55%, mild MR, mild TR. - Cardiac catheterization history: March 2018 with stenting of the distal and mid RCA REVIEW OF SYSTEMS: At the time of my exam: CONSTITUTIONAL: Denies fever or chills. HEENT: Denies blurred vision, vision changes, or eye pain. Denies hemoptysis CARDIOVASCULAR: Denies chest pain. Denies orthopnea. Denies PND. Denies palpitations RESPIRATORY: Denies shortness of breath. GASTROINTESTINAL: Denies abdominal pain. Denies nausea or vomiting. HEMATOLOGIC: Denies bleeding disorders. GENITOURINARY: Denies any blood in urine. SKIN: Denies pruitis. Denies rash. PHYSICAL EXAM: VITAL SIGNS: Reviewed. GENERAL: Well-developed in no acute distress. HEENT: Head is normocephalic. Pupils are equal, round. Sclerae anicteric. Mucous membranes of the mouth are moist. Neck supple. No JVD or thyromegaly LUNGS: Respirations even and unlabored. Lungs essentially clear to auscultation bilaterally. HEART: Regular rate and rhythm. S1 and S2 heard. ABDOMEN: Soft. Nondistended. Nontender. EXTREMITIES: Normal range of motion. No clubbing or cyanosis. Peripheral pulses intact. No lower extremity edema NEUROLOGIC: Awake and alert. Oriented x 3. ASSESSMENT: Chest pain, troponin negative x 3 Coronary artery disease with previous stenting of the RCA, 2018 Hyperlipidemia Nicotine dependence Medication noncompliance PLAN: An acute coronary event has been ruled out Obtain 2D echo to assess cardiac structure and function Add aspirin 81 mg daily, atorvastatin 40 mg at night, losartan 25 mg daily, metoprolol tartrate 12.5 mg twice a day Medication compliance discussed with patient who verbalized understanding Smoking cessation encouraged Further recommendations pending patient course Nurse practitioner note has been reviewed by physician. Signing provider agrees with the documented findings, assessment, and plan of care documented by RN TESTING as a scribe. Past Medical History Past Medical History: GERD/Reflux, Hyperlipidemia, Hypertension, Myocardial Infarction ([place]) Last Myocardial Infarction Date:: 03/18/2018 History of Any Multi-Drug Resistant Organisms: None Reported Past Surgical History: Back Surgery, Heart Catheterization With Stent, Orthopedic Surgery Additional Past Surgical History / Comment(s): neck surgery, fused C2,6 & 7 together. Rt shoulder surgery for shattered rotator cuff. fell 5 days ago on rt shoulder. rt heel/rt ankle surgery Past Anesthesia/Blood Transfusion Reactions: No Reported Reaction Past Psychological History: No Psychological Hx Reported Past Alcohol Use History: Occasional Past Drug Use History: None Reported - Past Family History Father Family Medical History: Myocardial Infarction ([place]) Mother Additional Family Medical History / Comment(s): from an aneuyrsm Medications and Allergies Home Medications Medication Instructions Recorded Confirmed Type No Known Home Medications 12/29/23 12/29/23 History Allergies Allergy/AdvReac Type Severity Reaction Status Date / Time No Known Allergies Allergy Verified 12/29/23 20:39 Physical Exam Vitals: Vital Signs Temp Pulse Resp BP Pulse Ox 12/30/23 08:03 98 12/30/23 04:01 66 16 133/88 97 12/30/23 02:00 73 17 117/71 96 12/30/23 01:30 67 18 138/74 96 12/30/23 01:00 81 17 103/63 95 12/30/23 00:30 64 17 115/96 96 12/30/23 00:00 84 15 114/53 98 12/29/23 23:30 78 18 112/66 96 12/29/23 23:01 68 20 112/66 99 12/29/23 23:00 75 15 115/77 97 12/29/23 22:30 75 15 118/68 97 12/29/23 22:00 77 16 118/70 99 12/29/23 21:30 81 22 114/86 95 12/29/23 21:00 82 15 113/92 97 12/29/23 20:30 87 16 135/83 96 12/29/23 20:09 86 15 135/83 96 12/29/23 20:00 86 18 130/72 96 12/29/23 19:30 84 15 135/74 96 12/29/23 19:27 87 14 135/74 96 12/29/23 19:26 85 16 135/74 96 12/29/23 19:15 98.5 F 97 20 110/82 94 L Intake and Output 12/29/23 12/30/23 12/30/23 22:59 06:59 14:59 Other: Weight 89.811 kg Results 12/29/23 19:15 12/29/23 19:15 Cardiac Enzymes 12/29/23 12/29/23 12/29/23 Range/Units 19:15 19:15 21:37 AST 45 (17-59) U/L Troponin I 0.014 0.014 (0.000-0.034) ng/mL 12/30/23 Range/Units 01:50 AST (17-59) U/L Troponin I <0.012 (0.000-0.034) ng/mL Coagulation 12/29/23 Range/Units 19:15 PT 10.6 (10.0-12.5) sec APTT 26.7 (22.0-30.0) sec CBC 12/29/23 Range/Units 19:15 WBC 4.1 (3.8-10.6) k/uL RBC 4.83 (4.30-5.90) m/uL Hgb 14.2 (13.0-17.5) gm/dL Hct 42.9 (39.0-53.0) % Plt Count 220 (150-450) k/uL Comprehensive Metabolic Panel 12/29/23 Range/Units 19:15 Sodium 134 L (137-145) mmol/L Potassium 4.2 (3.5-5.1) mmol/L Chloride 103 (98-107) mmol/L Carbon Dioxide 20 L (22-30) mmol/L BUN 18 (9-20) mg/dL Creatinine 0.96 (0.66-1.25) mg/dL Glucose 128 H (74-99) mg/dL Calcium 8.7 (8.4-10.2) mg/dL AST 45 (17-59) U/L ALT 34 (4-49) U/L Alkaline Phosphatase 85 (38-126) U/L Total Protein 6.6 (6.3-8.2) g/dL Albumin 3.9 (3.5-5.0) g/dL Current Medications Generic Name Dose Route Start Last Admin Trade Name Freq PRN Reason Stop Dose Admin Albuterol/Ipratropium 3 ml 12/29/23 22:05 Ipratropium-Albuterol 3 Ml Neb INHALATION RT-QID PRN Shortness Of Breath Or Wheezing Aspirin 81 mg 12/30/23 09:00 Aspirin 325 Mg Tab PO DAILY PANFILO Famotidine 20 mg 12/29/23 22:15 12/29/23 22:31 Famotidine 20 Mg Tab PO 20 mg BID PANFILO Administration Doxycycline Hyclate 100 mg/ 100 mls @ 100 mls/hr 12/29/23 22:15 12/29/23 22:44 Sodium Chloride IVPB 100 mls/hr Q12H [facility] Administration Protocol Nitroglycerin 0.4 mg 12/29/23 20:56 Nitroglycerin Sl Tabs 0.4 Mg Tab SUBLINGUAL Q5M PRN Chest Pain Nitroglycerin 1 inch 12/30/23 00:00 12/30/23 07:04 Nitroglycerin Oint 1 Inch/Gm Packet TOPICAL 1 inch Q6HR [facility] Administration Intake and Output 12/29/23 12/30/23 12/30/23 22:59 06:59 14:59 Other: Weight 89.811 kg 12/29/23 19:15 12/29/23 19:15
--- NOTE | 2023-12-30 11:18 | HP ---
HISTORY AND PHYSICAL had 2 stents placed about 15 years ago. He has had not take any blood pressure meds or cholesterol meds since then. He came in with heaviness in chest. He has been coughing with congestion over the last week or so. He smoked in the house for many years. His chest pain is associated with shortness of breath and coughing. He has low back pain also. He has possibly infected toes. HOME MEDICINES: Negative. ALLERGIES: Negative. REVIEW OF SYSTEMS: 14-point review of systems otherwise is negative. Severe nocturia. PAST MEDICAL HISTORY: GERD, hypertension, dyslipidemia, myocardial infarction. PAST SURGICAL HISTORY: Back surgery, heart catheterization, orthopedic surgery, neck surgery, fusions, rotator cuff surgeries. FAMILY HISTORY: Positive for father with myocardial infarction. Mother, aneurysm. PHYSICAL EXAMINATION: VITAL SIGNS: Temperature 98.5, pulse 85-87, blood pressure 110 to 130s over 70s to 80s, respiratory rate 14 to 20. INTEGUMENT: Severely deformed great toes with possible thick yellow exudate and some discoloration of the toes. The bottom of the right foot is severely black. Cranial nerves are intact. MUSCULOSKELETAL: Strength is good. Moves all 4 extremities. PSYCH: He is sleepy, lethargic. Gives appropriate answers. CARDIOVASCULAR: S1, S2. LUNGS: Scattered wheeze, rhonchi. HEMATOLOGY: 2+ edema. ASSESSMENT: 1. COPD. 2. History of coronary artery disease, rule out [place]. Cardiology is consulted. Troponin negative so far 134, hemoglobin is 14.2, white count is 4.1, albumin 3.9. 3. Atypical chest pain, suspect COPD exacerbation, tracheobronchitis, possible pneumonia, rule out [place]. PROGNOSIS: Guarded. Wait for Cardiology. See further orders. Prognosis guarded. MMODL / IJN: [id number] /
--- NOTE | 2023-12-30 12:41 | CA ---
Transthoracic Echo Report Name: Osmar David Age: 53 Gender: M : 1970 Exam Date: 12/30/2023 07:52 Exam Location: [facility] Ht (in): 73 Wt (lb): 198 Ordering Physician: Tyler Burns MD Attending/Referring Phys: Manufacturing Mechanic Marisa Gaming RDCS Procedure CPT: Indications: CAD Cardiac Hx: Technical Quality: Fair Contrast 1: Total Dose (mL): Contrast 2: Total Dose (mL): MEASUREMENTS (Male / Female) Normal Values 2D ECHO LV Diastolic Diameter PLAX 6.1 cm 4.2 - 5.9 / 3.9 - 5.3 cm LV Systolic Diameter PLAX 4.9 cm IVS Diastolic Thickness 0.9 cm 0.6 - 1.0 / 0.6 - 0.9 cm LVPW Diastolic Thickness 0.8 cm 0.6 - 1.0 / 0.6 - 0.9 cm LV Relative Wall Thickness 0.3 RV Internal Dim ED PLAX 2.1 cm LA Systolic Diameter LX 3.4 cm 3.0 - 4.0 / 2.7 - 3.8 cm LV Diastolic Volume MOD 4C 180.1 cm??? LV Systolic Volume MOD 4C 97.4 cm??? LV Ejection Fraction MOD 4C 45.9 % LV Cardiac Index MOD 4C 3634.7 cm???/min???m??? LV Diastolic Length 4C 9.1 cm LV Systolic Length 4C 7.7 cm M-MODE Aortic Root Diameter MM 3.7 cm LA Systolic Diameter MM 3.0 cm LA Ao Ratio MM 0.8 DOPPLER AV Peak Velocity 140.8 cm/s AV Peak Gradient 7.9 mmHg Mitral E Point Velocity 54.3 cm/s Mitral A Point Velocity 61.9 cm/s Mitral E to A Ratio 0.9 MV Deceleration Time 323.2 ms MV E' Velocity 5.6 cm/s Mitral E to MV E' Ratio 9.7 TR Peak Velocity 190.2 cm/s TR Peak Gradient 14.5 mmHg Right Ventricular Systolic Press 21.1 mmHg FINDINGS Left Ventricle Left ventricular ejection fraction is estimated at 45 %. Global left ventricular hypokinesis. Left ventricular wall thickness normal. Mildly increased left ventricular diastolic diameter. Right Ventricle Normal right ventricular size and function. Right Atrium Normal right atrial size. Left Atrium Normal left atrial size. Mitral Valve No evidence for mitral valve prolapse. No mitral stenosis. Mild mitral regurgitation. Aortic Valve Trileaflet aortic valve. No aortic valve stenosis or regurgitation. Tricuspid Valve Structurally normal tricuspid valve. Mild tricuspid regurgitation. Pulmonic Valve Structurally normal pulmonic valve. Trace pulmonic regurgitation. Pericardium No pericardial effusion. Aorta Normal size aortic root and proximal ascending aorta. CONCLUSIONS Normal left ventricular size with diffuse global hypokinesis and mild LV dysfunction Mild mitral regurgitation Previewed by: Dr. Marco A Beatty MD (Electronically Signed) Final Date: 30 December 2023 12:40
--- NOTE | 2023-12-30 12:43 | CA ---
Stress Echo Report Osmar David Age: 53 Gender: M : 1970 Exam Date: 12/30/2023 11:04 Exam Location: [facility] Ht (in): 73 Wt (lb): 198 Ordering Physician: Felicia Das Referring Physician: [id number] Machine Operator: Carolyn Enciso RDCS Technologist Procedure CPT: Indication: CP ICD-9 Codes: Rhythm: Patient History: CP, ANJUM, HTN, CHOL, FAMILY HX, TOB, MA, CATH, COPD Cardiac Medications: SEE CHART Medications in past 24 hours: Contrast: Stress Results Protocol: Luis Miguel Total dose(mL): Exercise Duration (min:sec): 9:[address] Depression (mm): Angina Score: Flores Score: METS: 9.9 Resting HR: 79 Resting BP: 131 / 91 Peak HR: 139 Peak BP: 158 / 71 Max Predicted HR: 165 84 % Max Predicted HR Target HR: 140 Double Product: 46879 Stress Summary: BP Response: Reason for Termination: Reached target heart rate or work-load, Maximal effort/unable to continue Cardiac Symptoms: Test terminated after reaching target heart rate (85% max predicted) ECG Analysis Resting ECG: Normal sinus rhythm normal axis normal intervals with poor R-wave progression Stress ECG: Patient exercised on Luis Miguel protocol for 9 and half minutes achieving 85% of predicted maximal heart rate without chest pain or diagnostic ST segment depression cardiac arrhythmia in the form of PVCs noted at peak exercise. Arrhythmia: Echo Analysis Resting Echo: Normal left ventricular size diffuse global hypokinesis with mild LV dysfunction Peak Echo Analysis: No evidence of exercise induced wall motion abnormalities MEASUREMENTS (Male/Female) Normal Values CONCLUSIONS Exercise tolerance Negative stress test by EKG criteria Normal baseline echo without any exercise induced wall motion abnormalities Dr. Marco A Beatty MD (Electronically Signed) Final Date: 30 December 2023 12:43
--- NOTE | 2023-12-30 19:10 | CT ---
CTA CHEST EXAMINATION TYPE: CT angio chest DATE OF EXAM: 12/30/2023 INDICATION: elevated d-dimer CT DLP: 426.5 mGycm, Automated exposure control for dose reduction was used. CONTRAST: Patient injected with 100 mL of Isovue 370. COMPARISON: 12/29/2023 TECHNIQUE: CT of the chest is performed on a spiral scan at 2 mm thick sections. Study is performed with intravenous contrast timed for evaluation for pulmonary embolism. This will limit additional po rtions of the evaluation. 3-D MIP images reconstructed by the technologist are reviewed on the compu ter in the coronal and sagittal planes. FINDINGS: No persistent filling defects are evident to suggest an acute pulmonary embolism. A 1.4 cm right hilar lymph node is present. 1.3 cm left hilar lymph node may be present. Small subcar inal lymph nodes are present. Couple of small lymph nodes at the aortopulmonic window and right para tracheal region. The ascending aorta diameter at the level of the main pulmonary artery is 3.7 cm. The main pulmonary artery diameter at the bifurcation is 3.1 cm. Lung windows are clear. Limited CT sections were through the upper abdomen. Upper abdomen appears unremarkable. IMPRESSION: 1. No acute pulmonary embolism. 2. Prominent Hilar lymph nodes. Small mediastinal lymph nodes are present.
[2023-12-30 19:49] VITALS: BP 110/96; PULSE 87; TEMP 98.2
[2023-12-30] MEDS ORDERED: ATORVASTATIN 40 MG TAB PO SCH (21:00)
== END 2023-12-30 19:27 | disposition home or self-care (01) ==
LOC: EC 19:01 → 3SCARD 20:56 → 6NMEDSUR 12-30 14:10
PROVIDERS: ADMIT Family Medicine; ATTEND Family Medicine
DX: R07.89 Other chest pain (principal); J44.9 Chronic obstructive pulmonary disease, unspecified; E78.00 Pure hypercholesterolemia, unspecified; I10 Essential (primary) hypertension; I25.10 Atherosclerotic heart disease of native coronary artery without angina pectoris; Z91.148 Patient's other noncompliance with medication regimen for other reason; F17.210 Nicotine dependence, cigarettes, uncomplicated; M54.50 Low back pain, unspecified; R11.2 Nausea with vomiting, unspecified; R19.7 Diarrhea, unspecified; R20.0 Anesthesia of skin; R53.1 Weakness; I25.2 Old myocardial infarction; Z95.5 Presence of coronary angioplasty implant and graft
CPT/HCPCS: 96361; 96365; 96366; 99285; 36415; 94760; 93005; 93306; 93351; 85379; 80061; 80053; 83735; 84484 ×2; 85025; 85610; 85730; 71046; 71250; 71275; G0378 ×3; Q9967